=== PATIENT | female | born 1990 | race Two or more races ===

== ENCOUNTER 2017-06-01 11:33 | Emergency (ER) | payer SELFPAY ==
--- NOTE | 2017-06-01 12:06 | ER Document Report ---
ED Psych Disorder / Suicide - General Chief Complaint: Suicidal Ideation Stated Complaint: SUICIDAL IDEATION Time Seen by Provider: 06/01/17 12:03 Notes: Patient says that she has been feeling depressed for a long time. She was seen by a local mental health provider at [facility] and prescribed both Zoloft and Prozac about 3 weeks ago. She says that her depression has worsened since she started taking those medications and is now feeling suicidal. She has had suicidal thoughts in the past. She cut the inner aspect of her left arm Veena, with the intent of causing herself pain, not killing herself. TRAVEL OUTSIDE OF THE [place] IN LAST 30 DAYS: No - Related Data Allergies/Adverse Reactions: No Known Allergies Allergy (Verified 06/01/17 11:40) Past Medical History - Social History Smoking Status: Current Every Day Smoker Chew tobacco use (# tins/day): No Frequency of alcohol use: Occasional Drug Abuse: Marijuana Family History: Reviewed & Not Pertinent Patient has suicidal ideation: Yes Neurological Medical History: Reports: Hx Migraine, Other - Neurofibromatosis type I Moyamoya disease Musculoskeltal Medical History: Denies Hx Arthritis Psychiatric Medical History: Reports: Hx Depression Past Surgical History: Reports: Hx Gynecologic Surgery - hymenectomy, Hx Nose Surgery - x2, Hx Orthopedic Surgery - bone biospy, Hx Tubal Ligation - Immunizations Hx Diphtheria, Pertussis, Tetanus Vaccination: Yes Review of Systems - Review of Systems Notes: REVIEW OF SYSTEMS: CONSTITUTIONAL : Denies fever. EENT: Denies eye, ear, nose or mouth or throat pain or other symptoms. CARDIOVASCULAR: Denies chest pain. RESPIRATORY: Denies cough, chest congestion, or shortness of breath. GASTROINTESTINAL: Denies abdominal pain or nausea, vomiting, or diarrhea. GENITOURINARY: Denies difficulty or painful urinating, urinary frequency, blood in urine. MUSCULOSKELETAL: Denies back or neck pain. Denies joint pain or swelling. SKIN: Denies rash or skin lesions. Superficial scratches from self-inflicted wounds four days ago. None require suturing or other care. NEUROLOGICAL: Denies LOC or altered mental status. Denies headache. Denies sensory loss or motor deficits. Psychiatric: See HPI. ALL OTHER SYSTEMS REVIEWED AND NEGATIVE. Physical Exam - Vital signs Vitals: Temp Pulse Resp BP Pulse Ox 98.7 F 98 16 137/92 H 99 06/01/17 11:40 06/01/17 11:40 06/01/17 11:40 06/01/17 11:40 06/01/17 11:40 - Notes Notes: PHYSICAL EXAMINATION: GENERAL: Well-appearing, in no acute distress. Close to tears at times and certainly appears depressed. HEAD: Atraumatic, normocephalic. EYES: Pupils equal round and reactive to light, extraocular movements intact. ENT: oropharynx clear without exudates. Moist mucous membranes. NECK: Normal range of motion, supple. LUNGS: Breath sounds clear and equal bilaterally. HEART: Regular rate and rhythm without murmurs. ABDOMEN: Soft, nontender. No guarding or rebound. BACK: No tenderness throughout entire back. EXTREMITIES: Normal range of motion without pain. NEUROLOGICAL: Normal speech, normal gait. Normal sensory, motor, and reflex exams. Awake, alert, and oriented x3. Cranial nerves normal. PSYCH: Depressed, anxious. SKIN: Warm, dry, no rashes. A few caf au lait spots of neurofibromatosis. Volar aspect of left forearm has multiple superficial cuts, self-inflicted, none requiring sutures and none infected. Course - Re-evaluation Re-evalutation: 06/01/17 13:57 Patient is to be evaluated by mental health. - Vital Signs Vital signs: Temp Pulse Resp BP Pulse Ox 98.7 F 98 16 137/92 H 99 06/01/17 11:40 06/01/17 11:40 06/01/17 11:40 06/01/17 11:40 06/01/17 11:40 - Laboratory Result Diagrams: 06/01/17 12:21 06/01/17 12:21 Laboratory results interpreted by me: 06/01/17 06/01/17 06/01/17 11:50 12:21 12:21 WBC 11.6 H Absolute Neutrophils 8.7 H Urine Blood SMALL H Salicylates < 1.0 L Acetaminophen < 10 L
[2017-06-01 12:33] LABS: APPEARANCE,URINE CLEAR; BILIRUBIN,URINE NEGATIVE (NEGATIVE); GLUCOSE, URINE NEGATIVE (NEGATIVE); KETONES,URINE NEGATIVE (NEGATIVE); LEUKOCYTE ESTERASE,URINE NEGATIVE (NEGATIVE); NITRITE,URINE NEGATIVE (NEGATIVE); PROTEIN,URINE NEGATIVE (NEGATIVE); URINE SPECIFIC GRAVITY 1.005; UROBILINOGEN,URINE NEGATIVE mg/dL (<2.0)
[2017-06-01 12:39] LABS: ABSOLUTE BASOPHILS # (AUTO) 0.1 10^3/uL (0.0-0.2); ABSOLUTE LYMPHOCYTES (AUTO) 1.9 10^3/uL (0.5-4.7); ABSOLUTE MONOCYTES (AUTO) 0.9 10^3/uL (0.1-1.4); ABSOLUTE NEUT (AUTO) 8.7 10^3/uL (1.7-8.2); BASOPHILS % (AUTO) 0.6 % (0-2); EOSINOPHILS % (AUTO) 0.3 % (0-6); HEMATOCRIT 42.5 % (36.0-47.0); HEMOGLOBIN 14.3 g/dL (12.0-15.5); HGB HCT DIFFERENCE 0.4; LYMPHOCYTES % (AUTO) 16.2 % (13-45); MEAN CORPUSCULAR HEMOGLOBIN 29.1 pg (27.0-33.4); MEAN CORPUSCULAR HGB CONC 33.7 g/dL (32.0-36.0); MEAN CORPUSCULAR VOLUME 86 fl (80-97); MONOCYTES % (AUTO) 7.7 % (3-13); RED BLOOD COUNT 4.92 10^6/uL (3.72-5.28); RED CELL DISTRIBUTION WIDTH 12.7 % (11.5-14.0); SEGMENTED NEUTROPHILS % (AUTO) 75.2 % (42-78); WHITE BLOOD COUNT 11.6 10^3/uL (4.0-10.5)
[2017-06-01 12:49] LABS: URINE BARBITURATES SCREEN NEGATIVE; URINE METHADONE SCREEN NEGATIVE; URINE OPIATES LOW NEGATIVE; URINE PHENCYCLIDINE SCREEN NEGATIVE
[2017-06-01 12:58] LABS: ALANINE AMINOTRANSFERASE 18 U/L (9-52); ALBUMIN 4.7 g/dL (3.5-5.0); ALCOHOL < 10 mg/dL (NONE DETECTED); ALKALINE PHOSPHATASE 54 U/L (38-126); ANION GAP 12 (5-19); ASPARTATE AMINO TRANSFERASE 15 U/L (14-36); BILIRUBIN,DIRECT 0.3 mg/dL (0.0-0.4); BILIRUBIN,TOTAL 0.6 mg/dL (0.2-1.3); BLOOD UREA NITROGEN 9 mg/dL (7-20); CALCIUM 10.2 mg/dL (8.4-10.2); CARBON DIOXIDE 26 mmol/L (22-30); CHLORIDE 102 mmol/L (98-107); CREATININE RESULT 0.66 mg/dL (0.52-1.25); GLUCOSE 90 mg/dL (75-110); POTASSIUM 3.9 mmol/L (3.6-5.0); SODIUM 140.4 mmol/L (137-145); TOTAL PROTEIN 8.2 g/dL (6.3-8.2)
--- NOTE | 2017-06-01 13:37 | EKG REPORT ---
SEVERITY:- NORMAL ECG - SINUS RHYTHM : Confirmed by: Evy Gutierrez 01-Jun-2017 13:36:43
[2017-06-01] MEDS ORDERED: ACETAMINOPHEN 325 MG TABLET PO ONE (14:23)
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
[2017-06-01] MEDS ORDERED: VENLAFAXINE HCL 37.5 MG CAP.SR.24H PO ONE (18:36)
[2017-06-01] MEDS: VENLAFAXINE HCL 37.5 MG CAP.SR.24H PO SCH (18:40)
[2017-06-01] MEDS ORDERED: BUSPIRONE HCL 10 MG TABLET PO SCH (22:00)
[2017-06-01] MEDS ORDERED: CLONIDINE HCL 0.1 MG TABLET PO SCH (22:00)
[2017-06-02] MEDS ORDERED: BUSPIRONE HCL 10 MG TABLET PO SCH (08:00)
--- NOTE | 2017-06-02 09:21 | ER Document Report ---
Doctor's Note Notes: 06/02/17 09:20 I have evaluated this patient this am and has no c/o at this time. Feels all of their needs are being met and physical exam is normal. Awaiting dispositon per mental health. 06/02/17 10:37 Pt evaluated by mental health. Recommending adding BuSpar 5 mg in the morning and 10 mg at night and Effexor 37.5 mg daily with follow-up at [facility]. Patient is no longer suicidal and is comfortable with plan. Given strict return precautions and she understands.
[2017-06-02] MEDS: VENLAFAXINE HCL 37.5 MG CAP.SR.24H PO SCH (10:31)
[2017-06-02 11:38] VITALS: BP 115/75
== END 2017-06-02 11:00 | disposition home or self-care (01) ==
LOC: ER 11:33
DX: R45.851 Suicidal ideations (principal); F32.9 Major depressive disorder, single episode, unspecified; F43.10 Post-traumatic stress disorder, unspecified; F17.200 Nicotine dependence, unspecified, uncomplicated; Z98.51 Tubal ligation status
CPT/HCPCS: 93005; 99285; 36415; 80307 ×4; 84703; 85025; 80053; 81001; 93010; J3490 ×2

== ENCOUNTER 2018-01-09 09:50 | Emergency (ER) | payer SELFPAY ==
[2018-01-09] MEDS ORDERED: PSEUDOEPHEDRINE HCL 30 MG TABLET PO ONE (12:19)
[2018-01-09] MEDS ORDERED: IBUPROFEN 800 MG TABLET PO ONE (12:19)
--- NOTE | 2018-01-09 12:21 | ER Document Report ---
HPI - HPI Patient complains to provider of: flu like symptoms Pain Level: 2 Context: Patient presents with flulike symptoms that started last evening. With recent sick contacts at home. Admits to headache, sinus congestion, nonproductive cough. Has not taken anything prior to arrival. Denies any fevers.Last menstrual period was December 21 PMH: NF1 and moyamoya without any previous complications - CONSTITUTIONAL Constitutional: REPORTS: Chills - RESPIRATORY Respiratory: REPORTS: Coughing - REPRODUCTIVE Reproductive: DENIES: : Past Medical History - Social History Smoking Status: Current Every Day Smoker Chew tobacco use (# tins/day): No Frequency of alcohol use: Rare Drug Abuse: None Family History: Reviewed & Not Pertinent Patient has suicidal ideation: No Patient has homicidal ideation: No - Past Medical History Cardiac Medical History: Denies: Hx Coronary Artery Disease, Hx Heart Attack, Hx Hypertension Pulmonary Medical History: Denies: Hx Asthma, Hx Bronchitis, Hx COPD, Hx Pneumonia Neurological Medical History: Reports: Hx Migraine. Denies: Hx Cerebrovascular Accident, Hx Seizures Renal/ Medical History: Denies: Hx Peritoneal Dialysis Musculoskeltal Medical History: Denies Hx Arthritis Psychiatric Medical History: Reports: Hx Depression Past Surgical History: Reports: Hx Gynecologic Surgery - hymenectomy, Hx Nose Surgery - x2, Hx Orthopedic Surgery - bone biospy, Hx Tubal Ligation - Immunizations Hx Diphtheria, Pertussis, Tetanus Vaccination: Yes Vertical Provider Document - CONSTITUTIONAL Agree With Documented VS: Yes Notes: PHYSICAL EXAM GENERAL: Alert, interacts well. HEENT: NCAT, pale conjunctiva, extraocular movements intact, pupils PERRL. external ear normal, no evidence of external auditory canal tenderness, blood/ drainage, cerumen impaction, TM intact without evidence of effusion, bulging, injection, MMM, Uvula midline. Airway patent. No evidence of tonsillar enlargement, peritonsillar abscess, retropharyngeal abscess. LUNGS: Clear to auscultation bilaterally, no wheezes, rales, or rhonchi. No respiratory distress. HEART: Regular rate and rhythm. No murmurs, gallops, or rubs. ABDOMEN: Soft, nondistended, nontender. No guarding, rebound, or rigidity.. Bowel sounds present in all 4 quadrants. EXTREMITIES: Moves all 4 extremities spontaneously. No edema, radial and dorsalis pedis pulses 2/4 bilaterally. No cyanosis. NEUROLOGICAL: Alert and oriented x4. Normal speech. PSYCH: Normal affect, normal mood. SKIN: Warm, dry, normal turgor. No rashes or lesions noted. - INFECTION CONTROL TRAVEL OUTSIDE OF THE [place] IN LAST 30 DAYS: No - RESPIRATORY O2 Sat by Pulse Oximetry: 97 Course - Re-evaluation Re-evalutation: 01/09/18 12:20 Patient presents with cough, diarrhea, and fever at home consistent with a diagnosis of influenza. Patient is overall well in appearance, in no acute distress. Lung sounds clear. Able to tolerate oral intake without difficulty here in the emergency department. After risks and benefits conversation with the patient regarding the use of Tamiflu, they have elected to use supportive care without Tamiflu based on concerns about lack of efficacy as well as the side effect profile. At this time will discharge with return precautions and follow-up recommendations. Verbal discharge instructions given a the bedside and opportunity for questions given. Medication warnings reviewed. Patient is in agreement with this plan and has verbalized understanding of return precautions and the need for primary care follow-up in the next 24-72 hours. - Vital Signs Vital signs: Temp Pulse Resp BP Pulse Ox 98.5 F 87 16 122/74 97 01/09/18 10:05 01/09/18 10:05 01/09/18 10:05 01/09/18 10:05 01/09/18 10:05 Discharge - Discharge Clinical Impression: Flu-like symptoms Condition: Good Disposition: HOME, SELF-CARE Additional Instructions: You have symptoms consistent with influenza. There is no treatment that is effective for this diagnosis other than supportive care at home. This includes drinking plenty of fluids, using Tylenol or ibuprofen as needed for fever and discomfort, and Zofran as needed for nausea and vomiting. Please follow closely with you primary care physician the next 1-2 days regarding this diagnosis. Return to the emergency department immediately if you began to have persistent vomiting prevents you from being able to keep fluids down for more than 12 hours, you pass out, you began having difficulty breathing, you become confused, or you have any other symptoms that are worrisome to you. Prescriptions: Ondansetron [Zofran Odt 4 mg Tablet] 1 - 2 tab PO Q4H PRN #15 tab.rapdis PRN Reason: For Nausea/Vomiting
[2018-01-09 12:40] VITALS: BP 120/75
== END 2018-01-09 12:40 | disposition home or self-care (01) ==
LOC: ER 09:50
DX: R51 Headache (principal); R09.81 Nasal congestion; R05 Cough; F17.200 Nicotine dependence, unspecified, uncomplicated; R19.7 Diarrhea, unspecified; R50.9 Fever, unspecified
CPT/HCPCS: 99283

== ENCOUNTER 2018-04-24 08:08 | Emergency (ER) | payer SELFPAY ==
[2018-04-24 08:15] VITALS: BP 121/80
[2018-04-24] MEDS ORDERED: METOCLOPRAMIDE HCL INJ/PF 10 MG/2 ML SDV IV ONE (09:14)
[2018-04-24] MEDS ORDERED: NORMAL SALINE 1000 ML 1,000 ML IV ONE (09:14)
[2018-04-24 09:25] LABS: ABSOLUTE BASOPHILS # (AUTO) 0.1 10^3/uL (0.0-0.2); ABSOLUTE EOSINOPHILS # (AUTO) 0.1 10^3/uL (0.0-0.6); ABSOLUTE LYMPHOCYTES (AUTO) 2.1 10^3/uL (0.5-4.7); ABSOLUTE MONOCYTES (AUTO) 1.2 10^3/uL (0.1-1.4); ABSOLUTE NEUT (AUTO) 8.7 10^3/uL (1.7-8.2); BASOPHILS % (AUTO) 0.8 % (0-2); EOSINOPHILS % (AUTO) 0.7 % (0-6); HEMATOCRIT 41.8 % (36.0-47.0); HEMOGLOBIN 14.5 g/dL (12.0-15.5); LYMPHOCYTES % (AUTO) 16.9 % (13-45); MEAN CORPUSCULAR HEMOGLOBIN 30.4 pg (27.0-33.4); MEAN CORPUSCULAR HGB CONC 34.7 g/dL (32.0-36.0); MEAN CORPUSCULAR VOLUME 88 fl (80-97); MONOCYTES % (AUTO) 10.1 % (3-13); PLATELET COUNT 302 10^3/uL (150-450); RED BLOOD COUNT 4.77 10^6/uL (3.72-5.28); RED CELL DISTRIBUTION WIDTH 12.8 % (11.5-14.0); SEGMENTED NEUTROPHILS % (AUTO) 71.5 % (42-78); TOTAL CELLS COUNTED % (AUTO) 100 %; WHITE BLOOD COUNT 12.1 10^3/uL (4.0-10.5)
[2018-04-24 09:42] LABS: ALANINE AMINOTRANSFERASE 21 U/L (9-52); ALBUMIN 4.9 g/dL (3.5-5.0); ALKALINE PHOSPHATASE 46 U/L (38-126); ANION GAP 16 (5-19); ASPARTATE AMINO TRANSFERASE 19 U/L (14-36); BILIRUBIN,DIRECT 0.4 mg/dL (0.0-0.4); BILIRUBIN,TOTAL 1.1 mg/dL (0.2-1.3); BLOOD UREA NITROGEN 9 mg/dL (7-20); CALCIUM 10.6 mg/dL (8.4-10.2); CARBON DIOXIDE 25 mmol/L (22-30); CHLORIDE 103 mmol/L (98-107); GLUCOSE 94 mg/dL (75-110); POTASSIUM 3.9 mmol/L (3.6-5.0)
--- NOTE | 2018-04-24 09:49 | ER Document Report ---
ED General - General Chief Complaint: Vomiting Stated Complaint: VOMITING, ABDOMINAL PAIN, HEADACHE Time Seen by Provider: 04/24/18 08:25 Mode of Arrival: Ambulatory Information source: Patient Notes: 27-year-old female presents with complaints of nausea and vomiting of 4 day duration. Patient notes her last menses was approximately 1 month ago. She denies any fevers or chills denies any diarrhea. Patient admits to [facility] TRAVEL OUTSIDE OF THE [place] IN LAST 30 DAYS: No - HPI Onset: Last week Onset/Duration: Persistent, Waxing and waning Quality of pain: Cramping Severity: Mild Pain Level: 1 Associated symptoms: Nausea, Vomiting, Other Exacerbated by: Food Relieved by: Denies Similar symptoms previously: No Recently seen / treated by doctor: No - Related Data Allergies/Adverse Reactions: No Known Allergies Allergy (Verified 04/24/18 08:58) Past Medical History - Social History Smoking Status: Current Every Day Smoker Cigarette use (# per day): Yes Chew tobacco use (# tins/day): No Smoking Education Provided: No Frequency of alcohol use: Heavy Drug Abuse: None Family History: Reviewed & Not Pertinent Patient has suicidal ideation: No Patient has homicidal ideation: No - Past Medical History Cardiac Medical History: Denies: Hx Coronary Artery Disease, Hx Heart Attack, Hx Hypertension Pulmonary Medical History: Denies: Hx Asthma, Hx Bronchitis, Hx COPD, Hx Pneumonia Neurological Medical History: Reports: Hx Migraine. Denies: Hx Cerebrovascular Accident, Hx Seizures Renal/ Medical History: Denies: Hx Peritoneal Dialysis Musculoskeltal Medical History: Denies Hx Arthritis Psychiatric Medical History: Reports: Hx Depression Past Surgical History: Reports: Hx Gynecologic Surgery - hymenectomy, Hx Nose Surgery - x2, Hx Orthopedic Surgery - bone biospy, Hx Tubal Ligation - Immunizations Hx Diphtheria, Pertussis, Tetanus Vaccination: Yes Review of Systems - Review of Systems Notes: REVIEW OF SYSTEMS: CONSTITUTIONAL : Denies fever, chills, or sweats. Denies recent illness. EENT: Denies eye, ear, throat, or mouth pain or symptoms. Denies nasal or sinus congestion or discharge. Denies throat, tongue, or mouth swelling or difficulty swallowing. CARDIOVASCULAR: Denies chest pain. Denies palpitations or racing or irregular heart beat. Denies ankle edema. RESPIRATORY: Denies cough, cold, or chest congestion. Denies shortness of breath, difficulty breathing, or wheezing. GASTROINTESTINAL: Admits to nausea vomiting GENITOURINARY: Denies difficulty urinating, painful urination, burning, frequency, blood in urine, or discharge. FEMALE GENITOURINARY: Denies vaginal bleeding, heavy or abnormal periods, irregular periods. Denies vaginal discharge or odor. MUSCULOSKELETAL: Denies back or neck pain or stiffness. Denies joint pain or swelling. SKIN: Denies rash, lesions or sores. HEMATOLOGIC : Denies easy bruising or bleeding. LYMPHATIC: Denies swollen, enlarged glands. NEUROLOGICAL: Denies confusion or altered mental status. Denies passing out or loss of consciousness. Denies dizziness or lightheadedness. Denies headache. Denies weakness or paralysis or loss of use of either side. Denies problems with gait or speech. Denies sensory loss, numbness, or tingling. Denies seizures. PSYCHIATRIC: Denies anxiety or stress. Denies depression, suicidal ideation, or homicidal ideation. ALL OTHER SYSTEMS REVIEWED AND NEGATIVE. PHYSICAL EXAMINATION: GENERAL: Well-appearing, well-nourished and in no acute distress. HEAD: Atraumatic, normocephalic. EYES: Pupils equal round and reactive to light, extraocular movements intact, conjunctiva are normal. ENT: Nares patent, oropharynx clear without exudates. Moist mucous membranes. Lips are dry NECK: Normal range of motion, supple without lymphadenopathy LUNGS: Breath sounds clear to auscultation bilaterally and equal. No wheezes rales or rhonchi. HEART: Regular rate and rhythm without murmurs ABDOMEN: Soft, generalized tenderness, nondistended abdomen. No guarding, no rebound. No masses appreciated. Female : deferred Musculoskeletal: Normal range of motion, no pitting or edema. No cyanosis. NEUROLOGICAL: Cranial nerves grossly intact. Normal speech, normal gait. Normal sensory, motor exams PSYCH: Normal mood, normal affect. SKIN: Warm, Dry, normal turgor, no rashes or lesions noted. Dictation was performed using [employer] voice recognition software Physical Exam - Vital signs Vitals: Temp Pulse Resp BP Pulse Ox 98.4 F 69 16 121/80 100 04/24/18 08:12 04/24/18 08:12 04/24/18 08:12 04/24/18 08:12 04/24/18 08:12 Course - Re-evaluation Re-evalutation: 04/24/18 09:51 Patient is noted to have mild white count elevation, she will be given IV fluids nausea control otherwise looks well is in no distress her hCG was negative 04/24/18 16:12 Patient notes symptoms have improved significantly I will discharge home with nausea control and close follow-up After performing a Medical Screening Examination, I estimate there is LOW risk for ACUTE APPENDICITIS, BOWEL OBSTRUCTION, ACUTE CHOLECYSTITIS, PERFORATED DIVERTICULITIS, INCARCERATED HERNIA, PANCREATITIS, PELVIC INFLAMMATORY DISEASE, PERFORATED ULCER, ECTOPIC , or TUBO-OVARIAN ABSCESS, thus I consider the discharge disposition reasonable. Also, there is no evidence or peritonitis , sepsis, or toxicity. I have reevaluated this patient multiple times and no significant life threatening changes are noted. The patient and I have discussed the diagnosis and risks, and we agree with discharging home with close follow-up with the understanding that symptoms and presentations can change. We also discussed returning to the Emergency Department immediately if new or worsening symptoms occur. We have discussed the symptoms which are most concerning (e.g., bloody stool, fever, changing or worsening pain, vomiting) that necessitate immediate return. - Vital Signs Vital signs: Temp Pulse Resp BP Pulse Ox 98.4 F 69 16 121/80 100 04/24/18 08:13 04/24/18 08:13 04/24/18 08:13 04/24/18 08:13 04/24/18 08:13 - Laboratory Result Diagrams: 04/24/18 09:09 04/24/18 09:09 Laboratory results interpreted by me: 04/24/18 04/24/18 09:09 09:09 WBC 12.1 H Absolute Neutrophils 8.7 H Calcium 10.6 H Discharge - Discharge Clinical Impression: Nausea & vomiting Qualifiers: Vomiting type: unspecified Vomiting Intractability: non-intractable Qualified Code(s): R11.2 - Nausea with vomiting, unspecified Abdominal pain Qualifiers: Abdominal location: unspecified location Qualified Code(s): R10.9 - Unspecified abdominal pain Condition: Stable Disposition: HOME, SELF-CARE Instructions: Vomiting ([facility]) Additional Instructions: Follow up with your physician tomorrow for further care or return to the ED IMMEDIATELY if symptoms worsen or new concerns occur. If you cannot afford to follow up with your primary care physician a list of low cost clinics have been provided at the end of your discharge papers as well. Prescriptions: Metoclopramide HCl [Reglan 10 mg Tablet] 1 - 2 tab PO Q6 #25 tablet
== END 2018-04-24 11:29 | disposition home or self-care (01) ==
LOC: ER 08:08
DX: R10.9 Unspecified abdominal pain (principal); R11.2 Nausea with vomiting, unspecified; R10.817 Generalized abdominal tenderness; D72.829 Elevated white blood cell count, unspecified; F17.210 Nicotine dependence, cigarettes, uncomplicated
CPT/HCPCS: 99284; 96361; 96374; 36415; 83690; 84703; 85025; 80053; J2765; J7030

== ENCOUNTER 2018-06-03 11:36 | Emergency (ER) | payer SELFPAY ==
[2018-06-03 11:51] VITALS: BP 103/51
[2018-06-03] MEDS ORDERED: LIDOCAINE 2% VISCOUS SOLN 20 ML UDCUP PO ONE (12:14)
[2018-06-03] MEDS ORDERED: PENICILLIN V POTASSIUM 500 MG TABLET PO ONE (12:14)
--- NOTE | 2018-06-03 12:18 | ER Document Report ---
ED Oral Problem - General Chief Complaint: Mouth Problem Stated Complaint: JAW AND TOOTH PAIN Time Seen by Provider: 06/03/18 12:04 Mode of Arrival: Ambulatory Information source: Patient Notes: 27-year-old female presented ED for complaint of dental pain to tooth #30. She states it is been going on for several days. She has a cavity in this tooth. She has all 4 teeth already surgically removed. There is no swelling to the gums or the face. She has been instructed to follow-up with the dentist as soon as possible. Patient is alert and oriented respirations regular and unlabored speaking in full sentences walk with a even steady gait. TRAVEL OUTSIDE OF THE U[place] IN LAST 30 DAYS: No - HPI Patient complains to provider of: Toothache. No: Swelling of face, Swelling of jaw Onset: Other - Several days worse for the last 2 days Onset: Gradual Quality of pain: Sharp, Throbbing Severity: Severe Pain Level: 5 Associated symptoms: Toothache Worsened by: Cold Relieved by: Nothing Similar symptoms previously: Yes Recently seen / treated by doctor/dentist: No - Related Data Allergies/Adverse Reactions: No Known Allergies Allergy (Verified 06/03/18 11:36) Past Medical History - General Information source: Patient - Social History Smoking Status: Current Every Day Smoker Cigarette use (# per day): Yes - 6-10 cigarettes a day Chew tobacco use (# tins/day): No Smoking Education Provided: Yes - 4 minutes Frequency of alcohol use: Social Drug Abuse: None Lives with: Family Family History: Reviewed & Not Pertinent Patient has suicidal ideation: No Patient has homicidal ideation: No - Past Medical History Cardiac Medical History: Reports: None Pulmonary Medical History: Reports: None EENT Medical History: Reports: None Neurological Medical History: Reports: Hx Migraine Endocrine Medical History: Reports: None Renal/ Medical History: Reports: None Malignancy Medical History: Reports: None GI Medical History: Reports: None Musculoskeltal Medical History: Reports Hx Musculoskeletal Trauma Skin Medical History: Reports None Psychiatric Medical History: Reports: Hx Depression Traumatic Medical History: Reports: Hx Fractures - Toe Past Surgical History: Reports: Hx Gynecologic Surgery - hymenectomy, Hx Nose Surgery - x2 sinus surgery due to infection and nasal reconstruction, Hx Oral Surgery - wisdom teeth removed, Hx Orthopedic Surgery - bone biospy, Hx Tubal Ligation - Immunizations Hx Diphtheria, Pertussis, Tetanus Vaccination: Yes Review of Systems - Review of Systems Constitutional: No symptoms reported EENT: Mouth pain, Dental problem Cardiovascular: No symptoms reported Respiratory: No symptoms reported Gastrointestinal: No symptoms reported Genitourinary: No symptoms reported Female Genitourinary: No symptoms reported Musculoskeletal: No symptoms reported Skin: No symptoms reported Hematologic/Lymphatic: No symptoms reported Neurological/Psychological: No symptoms reported Physical Exam - Vital signs Vitals: Temp Pulse Resp BP Pulse Ox 97.7 F 74 16 103/51 L 99 06/03/18 11:49 06/03/18 11:49 06/03/18 11:49 06/03/18 11:49 06/03/18 11:49 - HEENT Head: Normocephalic, Atraumatic Eyes: Normal Pupils: PERRL Ears: Normal External canal: Normal Tympanic membrane: Normal Sinus: Normal Nasal: Normal Mouth/Lips: Caries Teeth diagram: 1 - Dental cavity with pain to the tooth and gum Course - Re-evaluation Re-evalutation: 06/03/18 21:15 She was treated with Penicillin VK and viscous lidocaine for her dental pain. Patient was given instructions on the need to follow-up with the dentist as soon as possible. Patient was given instructions concerning the fact that lidocaine will numb the gum and tongue and to be aware when chewing so that she does not chew her tongue and cheek. After performing a Medical Screening Examination, I estimate there is LOW risk for a DEEP SPACE INFECTION (e.g., KERRY'S ANGINA OR RETROPHARYNGEAL ABSCESS), MENINGITIS, INTRACRANIAL HEMORRHAGE , or AIRWAY COMPROMISE, thus I consider the discharge disposition reasonable. Also, there is no evidence or peritonitis, sepsis, or toxicity. I have reevaluated this patient multiple times and no significant life threatening changes are noted. The patient and I have discussed the diagnosis and risks, and we agree with discharging home with close follow-up with the understanding that symptoms and presentations can change. We also discussed returning to the Emergency Department immediately if new or worsening symptoms occur. We have discussed the symptoms which are most concerning (e.g., changing or worsening pain, trouble swallowing or breathing, neck stiffness or fever) that necessitate immediate return. - Vital Signs Vital signs: Temp Pulse Resp BP Pulse Ox 97.7 F 74 16 103/51 L 99 06/03/18 11:49 06/03/18 11:49 06/03/18 11:49 06/03/18 11:49 06/03/18 11:49 Discharge - Discharge Clinical Impression: Pain due to dental caries Condition: Stable Disposition: HOME, SELF-CARE Instructions: Family Physicians / Practices, Use of Xjrk-Ktt-Fegkgao Ibuprofen ([facility]) Additional Instructions: TOOTHACHE: Your pain is due to dental decay. The tooth must be repaired in order for you to feel better. You will, therefore, be referred to a dentist. We do not have dentists on the staff at [facility]. Severe swelling or drainage around a tooth usually means a dental abscess. This also requires evaluation and treatment by the dentist, but antibiotics may be prescribed while awaiting dental treatment. You should be rechecked immediately if you develop major swelling of the face, increasing pain, a lump in the jaw or gums, headache, difficulty swallowing, or fever. PENICILLIN V K: You have been given a prescription for Penicillin VK. Your physician has determined that this is the best antibiotic for your condition. Pen VK can be taken with meals, however more of the antibiotic gets into the bloodstream if it's taken on an empty stomach. Penicillin usually has no side effects. However, allergy to penicillins is common. If you have had an allergic reaction to any drug of the penicillin family, you should never take any other penicillin. Notify your doctor at once if you develop hives, itching, swelling, faintness, or shortness of breath. Salt and soda solution 1 quart of water 1 tablespoon of salt 1 teaspoon of baking soda Mixed 3 ingredients together and boil for 1 minute Placed in a covered quart jar Use 1/2 ounce of cold solution to gargle 3 times a day You have been given a syringe of viscous lidocaine. You can use this by applying a small amount to your finger and the rub it onto the gums and tooth that is hurting. You can do this every 1-2 hours for your pain. Be aware that this will also numb your gums and tongue and try not to chew your tongue or gum. FOLLOW-UP CARE: You have been referred for follow-up care to the dentists listed below. Call the dentists office for an appointment as you were instructed or within the next two days. If you experience worsening or a significant change in your symptoms, notify the physician immediately or return to the Emergency Department at any time for re-evaluation. [facility] [address] [place], [place] [facility] [address] [place] [address] [facility] [address] [facility] [address] [place] [facility] [address] [email or web address] [address] [place] [address] Saturday- 8:00am to 5:00 pm Will see patients from other [facility]. Charges based on income and family size and accepts Medicare, Medicaid, and Insurances Will pull molars [facility] [id number] Hours of Operation 8:00 am - 4:30 pm weekdays The following dental offices accept Medicaid: [facility] [address] [address]se[address] Dr. Ortiz Dr. Hummel Dr. Campos Fuentes Tarango Lutsavage, and [facility] Dr. George ([place]) Dr. Jones ([place]) [facility] Drs. Thomas and Cameron ([place]) Dr. Ludwig ([place]) [facility] Dr. Turner ([place]) Drs. Ward and ([place]) Medicaid Care Line Prescriptions: Penicillin V Potassium [Penicillin Vk 500 mg Tablet] 500 mg PO BID #20 tablet
== END 2018-06-03 12:30 | disposition home or self-care (01) ==
LOC: ER 11:36
DX: K02.9 Dental caries, unspecified (principal); R68.84 Jaw pain; F17.210 Nicotine dependence, cigarettes, uncomplicated; Z98.51 Tubal ligation status
CPT/HCPCS: 99406; 99282; J3490

== ENCOUNTER 2018-08-26 18:32 | Emergency (ER) | payer OTHER ==
[2018-08-26] MEDS ORDERED: ALBUTEROL SULFATE 0.083% NEB 2.5 MG/3 ML AMPUL NEB ONE (20:19)
[2018-08-26] MEDS ORDERED: PREDNISONE 20 MG TABLET PO ONE (20:19)
--- NOTE | 2018-08-26 20:20 | ER Document Report ---
ED Medical Screen (RME) - General Chief Complaint: Productive Cough Stated Complaint: COUGH Time Seen by Provider: 08/26/18 20:19 Notes: 28-year-old female to the emergency department with cough, shortness of breath, wheezing and generally not feeling well. Is a smoker. Denies any other major symptoms at this time I have greeted and performed a rapid initial assessment of this patient. A comprehensive ED assessment and evaluation of the patient, analysis of test results and completion of the medical decision making process will be conducted by additional ED providers. TRAVEL OUTSIDE OF THE [place] IN LAST 30 DAYS: No - Related Data Allergies/Adverse Reactions: No Known Allergies Allergy (Verified 08/26/18 18:33) Past Medical History - Past Medical History Cardiac Medical History: Denies: Hx Coronary Artery Disease, Hx Heart Attack, Hx Hypertension Pulmonary Medical History: Denies: Hx Asthma, Hx Bronchitis, Hx COPD, Hx Pneumonia Neurological Medical History: Reports: Hx Migraine. Denies: Hx Cerebrovascular Accident, Hx Seizures Renal/ Medical History: Denies: Hx Peritoneal Dialysis Musculoskeltal Medical History: Denies Hx Arthritis, Reports Hx Musculoskeletal Trauma Psychiatric Medical History: Reports: Hx Depression Traumatic Medical History: Reports: Hx Fractures - Toe Past Surgical History: Reports: Hx Gynecologic Surgery - hymenectomy, Hx Nose Surgery - x2 sinus surgery due to infection and nasal reconstruction, Hx Oral Surgery - wisdom teeth removed, Hx Orthopedic Surgery - bone biospy, Hx Tubal Ligation - Immunizations Hx Diphtheria, Pertussis, Tetanus Vaccination: Yes Physical Exam - Vital signs Vitals: Temp Pulse Resp BP Pulse Ox 98.3 F 87 16 102/64 99 08/26/18 18:44 08/26/18 18:44 08/26/18 18:44 08/26/18 18:44 08/26/18 18:44 Course - Vital Signs Vital signs: Temp Pulse Resp BP Pulse Ox 98.3 F 87 16 102/64 99 08/26/18 18:44 08/26/18 18:44 08/26/18 18:44 08/26/18 18:44 08/26/18 18:44
--- NOTE | 2018-08-26 21:54 | ER Document Report ---
HPI - HPI Pain Level: 4 Notes: Patient is a 28-year-old female with no significant past medical history who presents to the ED complaining of a harsh and dry semi-productive cough, nasal congestion/discharge, postnasal drip, chest soreness only with a cough over the last 3-4 days. Patient has not been using any [id number]-ipyzumc meds for her symptoms. She is still eating and drinking without any difficulties. She is urinating normally and having normal bowel movements. Patient states that she has had a slight wheeze associated, but denies any other significant cardiopulmonary medical history. Denies any drug allergies. Denies any headache, fever, sore throat, palpitations, syncope, shortness of breath, abdominal pain, nausea/vomiting/diarrhea, urinary retention, dysuria, hematuria , or rash. - ROS Systems Reviewed and Negative: Yes All other systems reviewed and negative - REPRODUCTIVE Reproductive: DENIES: : Past Medical History - Social History Smoking Status: Current Every Day Smoker Family History: Reviewed & Not Pertinent Patient has suicidal ideation: No Patient has homicidal ideation: No - Past Medical History Cardiac Medical History: Denies: Hx Coronary Artery Disease, Hx Heart Attack, Hx Hypertension Pulmonary Medical History: Denies: Hx Asthma, Hx Bronchitis, Hx COPD, Hx Pneumonia Neurological Medical History: Reports: Hx Migraine. Denies: Hx Cerebrovascular Accident, Hx Seizures Renal/ Medical History: Denies: Hx Peritoneal Dialysis Musculoskeletal Medical History: Denies Hx Arthritis, Reports Hx Musculoskeletal Trauma Psychiatric Medical History: Reports: Hx Depression Traumatic Medical History: Reports: Hx Fractures - Toe Past Surgical History: Reports: Hx Gynecologic Surgery - hymenectomy, Hx Nose Surgery - x2 sinus surgery due to infection and nasal reconstruction, Hx Oral Surgery - wisdom teeth removed, Hx Orthopedic Surgery - bone biospy, Hx Tubal Ligation - Immunizations Hx Diphtheria, Pertussis, Tetanus Vaccination: Yes Vertical Provider Document - CONSTITUTIONAL Agree With Documented VS: Yes Notes: PHYSICAL EXAMINATION: GENERAL: Well-appearing, well-nourished and in no acute distress. A&Ox4. Answers questions appropriately. Moves comfortably w/o notable distress HEAD: Atraumatic, normocephalic. EYES: Pupils equal round and reactive to light, extraocular movements intact, sclera anicteric, conjunctiva are normal. ENT: EAC clear b/l. TM's intact b/l without erythema, fluid, or perforation. Nares patent and with clear discharge. oropharynx no erythema without exudates. No tonsilar hypertrophy without erythema or exudate. No palatine shift. Uvula midline. No tongue protrusion. No drooling, hoarseness, or airway compromise. Moist mucous membranes. No sinus tenderness. NECK: Normal range of motion, supple without lymphadenopathy. No rigidity/ meningismus. LUNGS: Scant wheeze Lt lung. no crackles/rhonchi. No retractions HEART: Regular rate and rhythm without murmurs, rubs, gallops. ABDOMEN: Soft, nontender, nondistended abdomen. No guarding, no rebound. No masses appreciated. Normal bowel sounds present. No CVA tenderness bilaterally. No hepatosplenomegaly. NEUROLOGICAL: Normal speech, normal gait. Normal sensory, motor exams PSYCH: Normal mood, normal affect. SKIN: Warm, Dry, normal turgor, no rashes or lesions noted. - INFECTION CONTROL TRAVEL OUTSIDE OF THE [place] IN LAST 30 DAYS: No Course - Re-evaluation Re-evalutation: 08/26/18 00:25 Patient is an afebrile, well-hydrated, 28-year-old female who presents to the ED with acute URI/bronchitis, suspect viral. Vitals are acceptable. PE is otherwise unremarkable. CXR unremarkable. No other labs or imaging warranted at this time based on H&P. Patient has no significant cardiopulmonary or immunocompromised medical conditions. Patient's lungs are clear to auscultation bilaterally without tachycardia, hypoxia, or tachypnea s/p breathing treatment. Patient is tolerating p.o. without any difficulties. Low suspicion for any meningitis, sepsis, peritonsillar/pharyngeal abscess, respiratory compromise, severe dehydration, or other emergent systemic condition at this time. Patient is aware this condition can change from initial presentation and she needs to monitor symptoms closely. Rx for an inhaler, tessalon, and prednisone. Conservative measures otherwise for symptoms. Recheck with your PCM in 3-5 days. Return to the ED with any worsening/concerning symptoms otherwise as reviewed in discharge. Patient is in agreement. - Vital Signs Vital signs: Temp Pulse Resp BP Pulse Ox 98.3 F 87 16 102/64 99 08/26/18 18:44 08/26/18 18:44 08/26/18 18:44 08/26/18 18:44 08/26/18 18:44 Discharge - Discharge Clinical Impression: Acute URI Acute bronchitis Qualifiers: Bronchitis organism: unspecified organism Qualified Code(s): J20.9 - Acute bronchitis, unspecified Condition: Stable Disposition: HOME, SELF-CARE Instructions: Bronchitis ([facility]), Upper Respiratory Illness ([facility]) Additional Instructions: Maintain adequate fluid intake Take meds as directed tylenol/ibuprofen as needed over the counter cold medication as needed for symptoms Humidified air may help Wash your hands regularly Wear a mask when coughing F/u: with your PCM in 3-5 days for a recheck Return to the ED with any fever, worsening pain, chest pain, palpitations, syncope, worsening SCHWARTZ, neck pain/stiffness, shortness of breath, wheezing, drooling, trouble swallowing/breathing, abdominal pain, n/v/d, rash, or worsening/concerning symptoms otherwise. Prescriptions: Benzonatate [Tessalon Perle 100 mg Capsule] 100 mg PO Q8HP PRN #15 cap PRN Reason: Albuterol Sulfate [Proair HFA Inhalation Aerosol 8.5 gm MDI] 2 puff IH Q4H PRN # 1 mdi PRN Reason: Prednisone [Deltasone 20 mg Tablet] 3 tab PO DAILY 4 Days tablet Forms: Smoking Cessation Education Referrals: [facility] [Provider Group] - Follow up as needed [facility] [Provider Group] - Follow up as needed
--- NOTE | 2018-08-26 23:55 | RADIOLOGY REPORT (SQ) ---
EXAM DESCRIPTION: XR CHEST 2 VIEWS COMPLETED DATE/TME: 08/26/2018 00:00 CLINICAL HISTORY: 28 years Female, shortness of breath COMPARISON: None. FINDINGS: Adequate lung volume, clear parenchyma, normal cardiac silhouette, and intact bony thorax. IMPRESSION: No acute cardiopulmonary findings.
[2018-08-27 00:43] VITALS: BP 110/66
--- NOTE | 2018-08-27 07:54 | EKG REPORT ---
SEVERITY:- NORMAL ECG - SINUS RHYTHM : Confirmed by: Macey Sweet MD 27-Aug-2018 07:54:12
== END 2018-08-27 00:44 | disposition home or self-care (01) ==
LOC: ER 18:32
DX: J20.9 Acute bronchitis, unspecified (principal); J06.9 Acute upper respiratory infection, unspecified; R05 Cough; R09.81 Nasal congestion; R09.82 Postnasal drip; R09.89 Other specified symptoms and signs involving the circulatory and respiratory systems; R06.2 Wheezing; F17.200 Nicotine dependence, unspecified, uncomplicated
CPT/HCPCS: 93005; 94640; 99284; 71046; 93010; J7512

== ENCOUNTER 2018-10-08 09:54 | Emergency (ER) | payer OTHER ==
[2018-10-08] MEDS ORDERED: KETOROLAC TROMETHAMINE INJ/PF 30 MG/1 ML SDV IV ONE (10:15)
[2018-10-08] MEDS ORDERED: NORMAL SALINE 1000 ML 1,000 ML IV ONE (10:15)
[2018-10-08] MEDS ORDERED: ONDANSETRON HCL INJ/PF 4 MG/2 ML SDV IV ONE (10:15)
[2018-10-08] MEDS ORDERED: DICYCLOMINE HCL 20 MG TABLET PO ONE (10:17)
--- NOTE | 2018-10-08 10:18 | ER Document Report ---
ED Medical Screen (RME) - General Chief Complaint: Abdominal Pain Stated Complaint: ABDOMINAL PAIN Time Seen by Provider: 10/08/18 10:15 Notes: 28 years old female presents today with diffuse abdominal pain and cramps since this morning. Has been having loose stools for the last 2 days. Slight nausea no vomiting. Denies any dysuria frequency urgency. Denies any fever chills or additional symptoms. On examination mild to moderate diffuse abdominal tenderness noted TRAVEL OUTSIDE OF THE [place] IN LAST 30 DAYS: No - Related Data Allergies/Adverse Reactions: No Known Allergies Allergy (Verified 10/08/18 09:56) Past Medical History - Social History Frequency of alcohol use: Rare Drug Abuse: None - Past Medical History Cardiac Medical History: Denies: Hx Coronary Artery Disease, Hx Heart Attack, Hx Hypertension Pulmonary Medical History: Denies: Hx Asthma, Hx Bronchitis, Hx COPD, Hx Pneumonia Neurological Medical History: Reports: Hx Migraine. Denies: Hx Cerebrovascular Accident, Hx Seizures Renal/ Medical History: Denies: Hx Peritoneal Dialysis Musculoskeltal Medical History: Denies Hx Arthritis, Reports Hx Musculoskeletal Trauma Psychiatric Medical History: Reports: Hx Depression Traumatic Medical History: Reports: Hx Fractures - Toe Past Surgical History: Reports: Hx Gynecologic Surgery - hymenectomy, Hx Nose Surgery - x2 sinus surgery due to infection and nasal reconstruction, Hx Oral Surgery - wisdom teeth removed, Hx Orthopedic Surgery - bone biospy, Hx Tubal Ligation - Immunizations Hx Diphtheria, Pertussis, Tetanus Vaccination: Yes Physical Exam - Vital signs Vitals: Temp Pulse Resp BP Pulse Ox 98.0 F 72 20 113/72 98 10/08/18 10:00 10/08/18 10:00 10/08/18 10:00 10/08/18 10:00 10/08/18 10:00 Course - Vital Signs Vital signs: Temp Pulse Resp BP Pulse Ox 98.0 F 72 20 113/72 98 10/08/18 10:00 10/08/18 10:00 10/08/18 10:00 10/08/18 10:00 10/08/18 10:00
[2018-10-08 10:44] LABS: ABSOLUTE BASOPHILS # (AUTO) 0.1 10^3/uL (0.0-0.2); ABSOLUTE EOSINOPHILS # (AUTO) 0.1 10^3/uL (0.0-0.6); ABSOLUTE LYMPHOCYTES (AUTO) 2.1 10^3/uL (0.5-4.7); ABSOLUTE MONOCYTES (AUTO) 0.7 10^3/uL (0.1-1.4); ABSOLUTE NEUT (AUTO) 5.5 10^3/uL (1.7-8.2); BASOPHILS % (AUTO) 0.6 % (0-2); EOSINOPHILS % (AUTO) 1.3 % (0-6); HEMATOCRIT 38.4 % (36.0-47.0); HEMOGLOBIN 13.7 g/dL (12.0-15.5); LYMPHOCYTES % (AUTO) 24.5 % (13-45); MEAN CORPUSCULAR HEMOGLOBIN 31.4 pg (27.0-33.4); MEAN CORPUSCULAR HGB CONC 35.8 g/dL (32.0-36.0); MEAN CORPUSCULAR VOLUME 88 fl (80-97); MONOCYTES % (AUTO) 8.5 % (3-13); PLATELET COUNT 297 10^3/uL (150-450); RED BLOOD COUNT 4.37 10^6/uL (3.72-5.28); RED CELL DISTRIBUTION WIDTH 13.2 % (11.5-14.0); SEGMENTED NEUTROPHILS % (AUTO) 65.1 % (42-78); TOTAL CELLS COUNTED % (AUTO) 100 %; WHITE BLOOD COUNT 8.4 10^3/uL (4.0-10.5)
[2018-10-08 10:50] LABS: APPEARANCE,URINE SLIGHTLY-CLOUDY; BILIRUBIN,URINE NEGATIVE (NEGATIVE); COLOR,URINE STRAW; GLUCOSE, URINE NEGATIVE (NEGATIVE); KETONES,URINE NEGATIVE (NEGATIVE); LEUKOCYTE ESTERASE,URINE SMALL (NEGATIVE); NITRITE,URINE NEGATIVE (NEGATIVE); PROTEIN,URINE NEGATIVE (NEGATIVE); URINE SPECIFIC GRAVITY 1.008; UROBILINOGEN,URINE NEGATIVE mg/dL (<2.0)
--- NOTE | 2018-10-08 10:57 | ER Document Report ---
ED General - General Mode of Arrival: Ambulatory Information source: Patient TRAVEL OUTSIDE OF THE [place] IN LAST 30 DAYS: No <SOLEDAD RAMIREZ - Last Filed: 10/08/18 11:40> <JACKY GRANGER - Last Filed: 10/08/18 12:46> - General Chief Complaint: Abdominal Pain Stated Complaint: ABDOMINAL PAIN Time Seen by Provider: 10/08/18 10:15 Notes: Patient is a 28 year old female presenting to the emergency department complaining of abdominal pain and cramps onset 2 days ago. Patient states her cramps were initially intermittent and exacerbated with food. Today she states the pain has become constant, exacerbated with walking and describes it as feeling like her "organs are going to drop out". She states she has not had a similar pain. Patient also complains of some nausea and diarrhea describing the diarrhea as a mix of loose, watery stool and solid stool. Patient denies any dysuria, urine frequency or urgency, fevers or chills. Patient's LMP was 10/04/2018. Of significance, in the last 7 years patient has presented to the emergency department several times complaining of abdominal pain. (SOLEDAD RAMIREZ) - Related Data Allergies/Adverse Reactions: No Known Allergies Allergy (Verified 10/08/18 11:38) Past Medical History - General Information source: Patient - Social History Smoking Status: Current Every Day Smoker Frequency of alcohol use: Rare Drug Abuse: None Family History: Reviewed & Not Pertinent Patient has suicidal ideation: No Patient has homicidal ideation: No Neurological Medical History: Reports: Hx Migraine Musculoskeletal Medical History: Reports Hx Musculoskeletal Trauma Psychiatric Medical History: Reports: Hx Depression Traumatic Medical History: Reports: Hx Fractures - Toe Past Surgical History: Reports: Hx Gynecologic Surgery - hymenectomy, Hx Nose Surgery - x2 sinus surgery due to infection and nasal reconstruction, Hx Oral Surgery - wisdom teeth removed, Hx Orthopedic Surgery - bone biospy, Hx Tubal Ligation - Immunizations Hx Diphtheria, Pertussis, Tetanus Vaccination: Yes <SOLEDAD RAMIREZ - Last Filed: 10/08/18 11:40> Review of Systems - Review of Systems Constitutional: No symptoms reported EENT: No symptoms reported Cardiovascular: No symptoms reported Respiratory: No symptoms reported Gastrointestinal: See HPI, Abdominal pain, Diarrhea Genitourinary: No symptoms reported Female Genitourinary: No symptoms reported Musculoskeletal: No symptoms reported Skin: No symptoms reported Hematologic/Lymphatic: No symptoms reported Neurological/Psychological: No symptoms reported -: Yes All other systems reviewed and negative <SOLEDAD RAMIREZ - Last Filed: 10/08/18 11:40> Physical Exam <SOLEDAD RAMIREZ - Last Filed: 10/08/18 11:40> <ELKINJACKY Rojas - Last Filed: 10/08/18 12:46> - Vital signs Vitals: Temp Pulse Resp BP Pulse Ox 98.0 F 72 20 113/72 98 10/08/18 10:00 10/08/18 10:00 10/08/18 10:00 10/08/18 10:00 10/08/18 10:00 - Notes Notes: GENERAL: Alert, interacts well. No acute distress. HEAD: Normocephalic, atraumatic. EYES: Pupils equal, round, and reactive to light. Extraocular movements intact. ENT: Oral mucosa moist, tongue midline. NECK: Full range of motion. Supple. Trachea midline. LUNGS: Clear to auscultation bilaterally, no wheezes, rales, or rhonchi. No respiratory distress. HEART: Regular rate and rhythm. No murmurs, gallops, or rubs. ABDOMEN: Soft, mild tenderness to the upper abdomen, tenderness to the lower abdomen . Non-distended. Bowel sounds hyperactive. EXTREMITIES: Moves all 4 extremities spontaneously. NEUROLOGICAL: Alert and oriented x3. Normal speech. PSYCH: Normal affect, normal mood. SKIN: Warm, dry, normal turgor. No rashes or lesions noted. (SOLEDAD RAMIREZ) Course - Laboratory Result Diagrams: 10/08/18 10:28 10/08/18 10:28 <SOLEDAD RAMIREZ - Last Filed: 10/08/18 11:40> - Laboratory Result Diagrams: 10/08/18 10:28 10/08/18 10:28 - Diagnostic Test Radiology reviewed: Image reviewed, Reports reviewed - Nonspecific bowel gas pattern. Nothing acute. <JACKY GRANGER - Last Filed: 10/08/18 12:46> - Re-evaluation Re-evalutation: 10/08/18 12:34 The patient's CBC is unremarkable and does not suggest any bacterial type infection. Chem-12 is normal with a BUN of 5 indicating patient is well hydrated. The catch urinalysis has a specific gravity of 1.008, 5 WBCs, 1 RBC, trace bacteria, and small leukocyte esterase. Acute abdominal series shows nonspecific bowel gas pattern. The patient tells me she has never had discomfort like this in the past, however she has been seen here many times over the last several years with very similar histories and physicals. 10/08/18 12:43 Patient reports she is feeling much better at this time. I discussed the likely diagnoses. We will treat her with Bentyl for the cramping. Advised her to stay on clear liquids and not eat food, and she did recognize that eating food tended to make the cramping and pain much worse. (JACKY GRANGER) - Vital Signs Vital signs: Temp Pulse Resp BP Pulse Ox 98.0 F 72 20 113/72 98 10/08/18 10:00 10/08/18 10:00 10/08/18 10:00 10/08/18 10:00 10/08/18 10:00 - Laboratory Laboratory results interpreted by me: 10/08/18 10/08/18 10:28 10:28 BUN 5 L AST 13 L Urine Blood MODERATE H Ur Leukocyte Esterase SMALL H Discharge <SOLEDAD RAMIREZ - Last Filed: 10/08/18 11:40> <JACKY GRANGER - Last Filed: 10/08/18 12:46> - Discharge Clinical Impression: Abdominal cramping Condition: Stable Disposition: HOME, SELF-CARE Additional Instructions: Gastroenteritis You most likely have gastroenteritis. This is an irritation of the stomach and intestinal tract. It's usually caused by a virus, but can also be caused by bacteria, toxins that cause food poisoning, or excessive alcohol intake. Symptoms may include fever, painful abdominal cramps, nausea, vomiting , and diarrhea. Start with small amounts (two to six ounces) of clear liquids (soft drinks , herb teas, broth, etc). Try to take fluids frequently even if you are vomiting, to prevent dehydration. When liquids are being consumed successfully , advance to small amounts of bland food (mashed potato, toast) for 6 - 12 hours. Gastroenteritis rarely requires medication. It goes away by itself. Use good handwashing so you don't spread germs. Wash underwear in very hot water. If symptoms are severe, talk to the doctor. Call your physician if blood appears in your vomitus or stool, if vomiting lasts longer than 24 hours, if the abdominal pain worsens or becomes localized to one area, or if you develop high fever. Take the Bentyl as prescribed for the intestinal cramping. Drink cool clear liquids today. Rest today. Follow-up with a local primary care provider if not improving. RETURN TO THE EMERGENCY ROOM IF ANY NEW OR WORSENING SYMPTOMS. Prescriptions: Dicyclomine HCl [Bentyl 20 mg Tablet] 20 mg PO Q6 PRN #15 tablet PRN Reason: Abdominal Cramping Scribe Attestation: 10/08/18 11:47 I personally performed the services described in the documentation, reviewed and edited the documentation which was dictated to the scribe in my presence, and it accurately records my words and actions. (JACKY GRANGER) Scribe Documentation - Scribe Written by Trinity:: Trinity Valles, 10/08/2018 10:57 acting as scribe for :: Elkin <SOLEDAD RAMIREZ - Last Filed: 10/08/18 11:40>
[2018-10-08 11:04] LABS: BLOOD UREA NITROGEN 5 mg/dL (7-20); GLUCOSE 83 mg/dL (75-110); POTASSIUM 4.2 mmol/L (3.6-5.0)
[2018-10-08 11:05] LABS: ALANINE AMINOTRANSFERASE 15 U/L (9-52); ALBUMIN 4.6 g/dL (3.5-5.0); ALKALINE PHOSPHATASE 40 U/L (38-126); ANION GAP 11 (5-19); ASPARTATE AMINO TRANSFERASE 13 U/L (14-36); BILIRUBIN,DIRECT 0.1 mg/dL (0.0-0.4); BILIRUBIN,TOTAL 0.5 mg/dL (0.2-1.3); CARBON DIOXIDE 26 mmol/L (22-30); CHLORIDE 105 mmol/L (98-107); LIPASE 30.9 U/L (23-300); SODIUM 142.1 mmol/L (137-145); TOTAL PROTEIN 7.4 g/dL (6.3-8.2); URINE AMPHETAMINES SCREEN NEGATIVE; URINE BARBITURATES SCREEN NEGATIVE; URINE BENZODIAZEPINES SCREEN NEGATIVE; URINE COCAINE SCREEN NEGATIVE; URINE MARIJUANA (THC) SCREEN UNCONFIRMED POSITIVE; URINE METHADONE SCREEN NEGATIVE; URINE PHENCYCLIDINE SCREEN NEGATIVE
--- NOTE | 2018-10-08 12:00 | RADIOLOGY REPORT (SQ) ---
EXAM DESCRIPTION: ACUTE ABDOMEN SERIES COMPLETED DATE/TIME: 10/08/2018 11:49 am REASON FOR STUDY: Abdominal pain COMPARISON: Chest x-ray dated 08/26/2018 NUMBER OF VIEWS: Three views. TECHNIQUE: Frontal chest, supine abdomen and upright/decubitus abdomen radiographic images acquired. LIMITATIONS: None. FINDINGS: CHEST: Lungs clear of infiltrates. FREE AIR: None. No abnormal gas collections. BOWEL GAS PATTERN: Nonobstructive pattern. No dilated loops or air fluid levels. CALCIFICATIONS: No suspicious calcifications. HARDWARE: There are tubal ligation clips overlying the right aspect of the pelvis. SOFT TISSUES: No gross mass or suggestion of organomegaly. BONES: No acute fracture. No worrisome bone lesions. OTHER: No other significant finding. IMPRESSION: NO RADIOGRAPHIC EVIDENCE FOR ACUTE ABDOMINAL DISEASE. TECHNICAL DOCUMENTATION: JOB ID: [id number] [email or web address]- All Rights Reserved Reading location - IP/workstation name: [email or web address]
[2018-10-08 13:18] VITALS: BP 108/58
== END 2018-10-08 13:00 | disposition home or self-care (01) ==
LOC: ER 09:54
DX: R10.9 Unspecified abdominal pain (principal); R11.0 Nausea; R19.7 Diarrhea, unspecified; F17.200 Nicotine dependence, unspecified, uncomplicated
CPT/HCPCS: 99284; 96361; 96374; 96375; 36415; 83690; 85025; 81025; 80053; 81001; 80307; 74022; J3490; J1885; J2405; J7030

== ENCOUNTER → 2018-10-21 | Outpatient (CLI) | payer OTHER ==
--- NOTE | 2018-10-21 10:24 | RADIOLOGY REPORT (SQ) ---
EXAM DESCRIPTION: U/S THYROID/SFT TISS HD NECK COMPLETED DATE/TIME: 10/21/2018 10:08 am REASON FOR STUDY: GENERALIZED ENLARGED LYMPH NODES R59.1 GENERALIZED ENLARGED LYMPH NODES COMPARISON: None. TECHNIQUE: Dynamic and static perez-scale images acquired of the thyroid gland. Selected additional c olor/power Doppler images recorded. All images stored to PACS. LIMITATIONS: None. FINDINGS: RIGHT LOBE: Normal size, 4.5 x 1.6 x 2 cm. Homogeneous echotexture. No cystic or solid m asses. LEFT LOBE: Normal size, 4.2 x 1.6 x 2 cm. Homogeneous echotexture. No cystic or solid masses. ISTHMUS: Normal size. Homogeneous echotexture. No cystic or solid masses. OTHER: Several hypoechoic lymph nodes are present in the left supraclavicular region, 1.3 x 1 cm, 1 x 0.4 cm, 0.9 x 0.4 cm in size IMPRESSION: NORMAL THYROID ULTRASOUND. Mildly enlarged left supraclavicular lymph nodes are present. TECHNICAL DOCUMENTATION: JOB ID: [id number]- All Rights Reserved Reading location - IP/workstation name: [email or web address]
== END ==
LOC: RAD 09:24
PROVIDERS: ATTEND Internal Medicine
DX: R59.1 Generalized enlarged lymph nodes (principal)
CPT/HCPCS: 76536

== ENCOUNTER 2019-03-09 10:46 | Emergency (ER) | payer OTHER ==
--- NOTE | 2019-03-09 11:07 | ER Document Report ---
ED Medical Screen (RME) - General Chief Complaint: Burn Stated Complaint: GREASE BURN TO EYE/ARM Time Seen by Provider: 03/09/19 11:03 Primary Care Provider: RADHA OROZCO MD [Primary Care Provider] - Follow up as needed Mode of Arrival: Wheelchair Information source: Patient Notes: Patient is an otherwise healthy 20-year-old female who presents to the emergency department with complaints of increased burning. Patient reports burn to her right antecubital area as well as her bilateral eyes. Patient reports she was cooking hamburger when the grease splashed up at her. Exam: No visible irving noted on exam to right arm. Eye exam deferred until patient is in a room. I have greeted and performed a rapid initial assessment of this patient. A comprehensive ED assessment and evaluation of the patient, analysis of test results and completion of the medical decision making process will be conducted by additional ED providers. Dictation of this chart was performed using voice recognition software; therefore, there may be some unintended grammatical errors. TRAVEL OUTSIDE OF THE [place] IN LAST 30 DAYS: No - Related Data Allergies/Adverse Reactions: No Known Allergies Allergy (Verified 03/09/19 10:51) Past Medical History - Social History Chew tobacco use (# tins/day): - 1/2 ppd Frequency of alcohol use: Occasional Drug Abuse: None - Past Medical History Cardiac Medical History: Denies: Hx Coronary Artery Disease, Hx Heart Attack, Hx Hypertension Pulmonary Medical History: Denies: Hx Asthma, Hx Bronchitis, Hx COPD, Hx Pneumonia Neurological Medical History: Reports: Hx Migraine. Denies: Hx Cerebrovascular Accident, Hx Seizures Renal/ Medical History: Denies: Hx Peritoneal Dialysis Musculoskeltal Medical History: Denies Hx Arthritis, Reports Hx Musculoskeletal Trauma Psychiatric Medical History: Reports: Hx Depression Traumatic Medical History: Reports: Hx Fractures - Toe Past Surgical History: Reports: Hx Gynecologic Surgery - hymenectomy, Hx Nose Surgery - x2 sinus surgery due to infection and nasal reconstruction, Hx Oral Surgery - wisdom teeth removed, Hx Orthopedic Surgery - bone biospy, Hx Tubal Ligation - Immunizations Hx Diphtheria, Pertussis, Tetanus Vaccination: Yes Doctor's Discharge - Discharge Referrals: RADHA OROZCO MD [Primary Care Provider] - Follow up as needed
[2019-03-09] MEDS ORDERED: TETRACAINE HCL 0.5% OPH SOLN 4 ML OU ONE (11:30)
--- NOTE | 2019-03-09 11:33 | ER Document Report ---
ED General - General Chief Complaint: Burn Stated Complaint: GREASE BURN TO EYE/ARM Time Seen by Provider: 03/09/19 11:03 Primary Care Provider: RADHA ROOZCO MD [Primary Care Provider] - Follow up as needed Mode of Arrival: Wheelchair Notes: Patient is a 28-year-old female who presents emergency with a chief complaint of bilateral eye pain. She states that about around 1030 this morning she was meal prepping and she was taking chicken out of a [employer] and grease had flung up off the spoon into both her eyes. She has had her eyes closed since the incident. She states that last time she saw the ios software engineer, she was borderline needing to wear glasses, but was not prescribed them. TRAVEL OUTSIDE OF THE [place] IN LAST 30 DAYS: No - Related Data Allergies/Adverse Reactions: No Known Allergies Allergy (Verified 03/09/19 10:51) Past Medical History - General Information source: Patient - Social History Smoking Status: Current Every Day Smoker Chew tobacco use (# tins/day): - 1/2 ppd Frequency of alcohol use: Occasional Drug Abuse: None Family History: Reviewed & Not Pertinent Patient has suicidal ideation: No Patient has homicidal ideation: No - Past Medical History Cardiac Medical History: Denies: Hx Coronary Artery Disease, Hx Heart Attack, Hx Hypertension Pulmonary Medical History: Denies: Hx Asthma, Hx Bronchitis, Hx COPD, Hx Pneumonia Neurological Medical History: Reports: Hx Migraine. Denies: Hx Cerebrovascular Accident, Hx Seizures Renal/ Medical History: Denies: Hx Peritoneal Dialysis Musculoskeletal Medical History: Denies Hx Arthritis, Reports Hx Musculoskeletal Trauma Psychiatric Medical History: Reports: Hx Depression Traumatic Medical History: Reports: Hx Fractures - Toe Past Surgical History: Reports: Hx Gynecologic Surgery - hymenectomy, Hx Nose Surgery - x2 sinus surgery due to infection and nasal reconstruction, Hx Oral Surgery - wisdom teeth removed, Hx Orthopedic Surgery - bone biospy, Hx Tubal Ligation - Immunizations Hx Diphtheria, Pertussis, Tetanus Vaccination: Yes Review of Systems - Review of Systems Notes: REVIEW OF SYSTEMS: CONSTITUTIONAL : Denies recent illness. Denies recent unintentional weight loss. Denies fever, chills, or sweats. EENT: See HPI CARDIOVASCULAR: Denies chest pain. RESPIRATORY: Denies shortness of breath, cough, congestion, difficulty breathing, or wheezing. GASTROINTESTINAL: Denies nausea, vomiting, and diarrhea. Denies abdominal pain. Denies constipation. GENITOURINARY: Denies difficulty urinating, burning, blood in urine, urgency or frequency. MUSCULOSKELETAL: Denies neck and back pain. Denies joint pain or swelling. SKIN: Denies rash, itchiness, or lesions HEMATOLOGIC : Denies easy bruising or bleeding. LYMPHATIC: Denies swollen, painful, enlarged glands. NEUROLOGICAL: Denies no numbness or tingling denies weakness. Denies headache. Denies altered mental status. Denies alteration in speech. PSYCHIATRIC: Denies stress, anxiety, alteration in sleep patterns, or depression. All other systems reviewed and negative. Physical Exam - Vital signs Vitals: Temp Pulse Resp BP Pulse Ox 98.7 F 69 16 112/68 98 03/09/19 10:54 03/09/19 10:54 03/09/19 10:54 03/09/19 10:54 03/09/19 10:54 - Notes Notes: PHYSICAL EXAMINATION: GENERAL: Appears well, healthy, well-nourished, no acute distress. HEAD: Normocephalic, atraumatic. EYES: PERRL, conjunctiva injected at area of irving, all extraocular movements intact, sclera nonicteric, very small irving noted to left lateral eye and right medial and lateral eye. ENT: Moist mucous membranes. NECK: Supple, no noticeable swelling, redness, rash. Normal range of motion. LUNGS: Equal breath sounds bilaterally and clear to auscultation. No wheezes rales or rhonchi. CARDIOVASCULAR: S1-S2, regular rate, regular rhythm. Radial pulses 2+, normal. ABDOMEN: Normoactive bowel sounds. Soft, nontender, no guarding, no rebound tenderness, and no masses palpated. EXTREMITIES: Normal strength and range of motion, no pitting or edema. No cyanosis. NEUROLOGICAL: Moves all extremities upon command. Strength 5/5 in all extremities. PSYCH: Normal mood, normal affect. SKIN: Warm, dry. No rash, lesions, ulcerations noted. Normal skin turgor. Course - Re-evaluation Re-evalutation: 03/09/19 11:57 Conjunctivae was injected, along with very small irving to the lateral aspect of bilateral eyes and medial aspect of right eye. She will be started on Polytrim eyedrops and Toradol eyedrops for pain. Negative Margaret sign. I do not suspect globe rupture. Patient had almost complete resolution of pain with lidocaine drops. She will follow-up with ophthalmology. Verbal discharge instructions were given to the patient. They verbalized understanding. They are stable for discharge. - Vital Signs Vital signs: Temp Pulse Resp BP Pulse Ox 98.7 F 69 16 112/68 98 03/09/19 10:54 03/09/19 10:54 03/09/19 10:54 03/09/19 10:54 03/09/19 10:54 Discharge - Discharge Clinical Impression: Burn Burn of eye Qualifiers: Encounter type: initial encounter Laterality: unspecified laterality Qualified Code(s): T26.40XA - Burn of unspecified eye and adnexa, part unspecified, initial encounter Condition: Stable Disposition: HOME, SELF-CARE Additional Instructions: You were seen today in the emergency department for a grease burn. Your eye showed that you have very small irving to them. You have been started on antibiotics. Place 1 drop to both eyes every 3 hours while awake for the next 7 days. You have also been given pain medication eyedrops, please use as directed. The irving on your skin are very superficial and please follow-up with ophthalmology below in regards to this visit. Prescriptions: Ketorolac Tromethamine [Acular] 1 drop OU TIDP PRN #5 ml PRN Reason: Referrals: MARYCARMEN WOODSON MD [ACTIVE STAFF] - Follow up in 3-5 days
[2019-03-09] MEDS ORDERED: POLYMYXIN B SULFATE/TMP OPH SOLN (10 ML/ER DISP) OU PRN (12:01)
[2019-03-09 12:18] VITALS: BP 110/66
== END 2019-03-09 12:16 | disposition home or self-care (01) ==
LOC: ER 10:46
DX: T26.42XA Burn of left eye and adnexa, part unspecified, initial encounter (principal); T26.41XA Burn of right eye and adnexa, part unspecified, initial encounter; X10.2XXA Contact with fats and cooking oils, initial encounter; Y93.G3 Activity, cooking and baking; F17.200 Nicotine dependence, unspecified, uncomplicated
CPT/HCPCS: 99283; J3490 ×2

== ENCOUNTER 2019-05-20 14:50 | Emergency (ER) | payer OTHER ==
[2019-05-20 15:07] VITALS: BP 116/70
[2019-05-20] MEDS ORDERED: CYCLOBENZAPRINE HCL 10 MG TABLET PO ONE (15:29)
[2019-05-20] MEDS ORDERED: ACETAMINOPHEN 325 MG TABLET PO ONE (15:29)
[2019-05-20] MEDS ORDERED: LIDOCAINE 5% (700 MG) TRANSDERMAL ADH..PATCH TP ONE (15:29)
--- NOTE | 2019-05-20 15:32 | ER Document Report ---
HPI - HPI Patient complains to provider of: Left shoulder pain Time Seen by Provider: 05/20/19 15:19 Onset: Other - 4 days Onset/Duration: Persistent Quality of pain: Achy Pain Level: 5 Context: Patient presents complaining of left shoulder back pain for the past 4 days. Patient denies any injury. Patient denies any fever. Patient complains of increased pain with movement of left upper extremity. Associated Symptoms: Other - Left upper back pain Exacerbated by: Movement Relieved by: Remaining still Similar symptoms previously: No Recently seen / treated by doctor: No - ROS ROS below otherwise negative: Yes Systems Reviewed and Negative: Yes All other systems reviewed and negative - CONSTITUTIONAL Constitutional: DENIES: Fever - NEURO Neurology: DENIES: Headache, Weakness - GASTROINTESTINAL Gastrointestinal: DENIES: Nausea - REPRODUCTIVE Reproductive: DENIES: : - MUSCULOSKELETAL Musculoskeletal: REPORTS: Back Pain - DERM Skin Color: Normal Skin Problems: None Past Medical History - General Information source: Patient - Social History Smoking Status: Current Every Day Smoker Smoking Education Provided: Yes Frequency of alcohol use: Occasional Drug Abuse: None Occupation: None Lives with: Family Family History: Reviewed & Not Pertinent - Medical History Medical History: Other - [place], neurofibromatosis type I Neurological Medical History: Reports: Hx Migraine Renal/ Medical History: Denies: Hx Peritoneal Dialysis Musculoskeletal Medical History: Denies Hx Arthritis, Reports Hx Musculoskeletal Trauma Psychiatric Medical History: Reports: Hx Depression Traumatic Medical History: Reports: Hx Fractures - Toe Past Surgical History: Reports: Hx Gynecologic Surgery - hymenectomy, Hx Nose Surgery - x2 sinus surgery due to infection and nasal reconstruction, Hx Oral Surgery - wisdom teeth removed, Hx Orthopedic Surgery - bone biospy, Hx Tubal Ligation - Immunizations Hx Diphtheria, Pertussis, Tetanus Vaccination: Yes Vertical Provider Document - CONSTITUTIONAL Agree With Documented VS: Yes Exam Limitations: No Limitations General Appearance: WD/WN, No Apparent Distress - INFECTION CONTROL TRAVEL OUTSIDE OF THE [place] IN LAST 30 DAYS: No - HEENT HEENT: Atraumatic, Normocephalic - NECK Neck: Normal Inspection, Supple. negative: Lymphadenopathy-Left, Lymphadenopathy-Right - RESPIRATORY Respiratory: Breath Sounds Normal, No Respiratory Distress - CARDIOVASCULAR Cardiovascular: Regular Rate, Regular Rhythm, No Murmur Pulses: Normal: Radial - BACK Back: Abnormal Inspection - Trapezius muscle tenderness worse with movement of left shoulder. No spinal midline tenderness step-off or deformity - MUSCULOSKELETAL/EXTREMETIES Musculoskeletal/Extremeties: YFN MITCHELL Notes: Patient with full range of motion to left shoulder, normal strength and muscle tone to bilateral upper extremities - NEURO Level of Consciousness: Awake, Alert, Appropriate Motor/Sensory: No Motor Deficit, No Sensory Deficit - DERM Integumentary: Warm, Dry, No Rash Course - Re-evaluation Re-evalutation: 05/20/19 15:31 Patient with tenderness to the left trapezius muscle that is reproducible with movement of left upper extremity. No spinal midline tenderness step-off or deformity. Patient otherwise neurologically intact. Patient encouraged to follow-up with her primary doctor for recheck. - Vital Signs Vital signs: Temp Pulse Resp BP Pulse Ox 98.7 F 88 17 116/70 100 05/20/19 15:05 05/20/19 15:05 05/20/19 15:05 05/20/19 15:05 05/20/19 15:05 Discharge - Discharge Clinical Impression: Trapezius muscle strain Qualifiers: Encounter type: initial encounter Laterality: left Qualified Code(s): S46.812A - Strain of other muscles, fascia and tendons at shoulder and upper arm level, left arm, initial encounter Condition: Stable Disposition: HOME, SELF-CARE Instructions: Muscle Relaxers ([facility]), Muscle Strain ([facility]), Warm Packs ([facility]) Additional Instructions: Return immediately for any new or worsening symptoms Followup with your primary care provider, call tomorrow to make a followup appointment Prescriptions: Cyclobenzaprine HCl [Flexeril 5 mg Tablet] 5 mg PO TID #15 tablet Lidocaine [Lidoderm 5% (700 mg) Transdermal Patch] 1 patch TP DAILY PRN #10 adh..patch PRN Reason: Naproxen [Naprosyn 250 Nmg Tablet] 1 tab PO BID #14 tablet Forms: Smoking Cessation Education Referrals: CHRISTOPHER BOWEN MD [ACTIVE STAFF] - Follow up as needed
== END 2019-05-20 15:54 | disposition home or self-care (01) ==
LOC: ER 14:50
DX: S46.812A Strain of other muscles, fascia and tendons at shoulder and upper arm level, left arm, initial encounter (principal); M25.512 Pain in left shoulder; M79.602 Pain in left arm; M54.6 Pain in thoracic spine; X58.XXXA Exposure to other specified factors, initial encounter; F17.200 Nicotine dependence, unspecified, uncomplicated; Q85.01 Neurofibromatosis, type 1
CPT/HCPCS: 99283

== ENCOUNTER 2019-08-28 08:19 | Emergency (ER) | payer OTHER ==
--- NOTE | 2019-08-28 08:36 | ER Document Report ---
ED General - General Chief Complaint: Nausea/Vomiting Stated Complaint: VOMITING Time Seen by Provider: 08/28/19 08:35 TRAVEL OUTSIDE OF THE [place] IN LAST 30 DAYS: No - HPI Notes: 29 y/o presenting to ED for evaluation of abdominal cramping and vomiting she denies blood in emesis, loose stool, or sick contacts no fever or chills she states all of her symptoms started yesterday and she felt fine previous to that she does not localize pain to any particular area of her belly she denies urinary pain or frequency she is on her period and has a h/o BTL so doubts she denies a h/o kidney stone she still has her GB and appendix in place - Related Data Allergies/Adverse Reactions: No Known Allergies Allergy (Verified 05/20/19 14:51) Past Medical History - Social History Smoking Status: Unknown if Ever Smoked Family History: Reviewed & Not Pertinent - Past Medical History Cardiac Medical History: Denies: Hx Coronary Artery Disease, Hx Heart Attack, Hx Hypertension Pulmonary Medical History: Denies: Hx Asthma, Hx Bronchitis, Hx COPD, Hx Pneumonia Neurological Medical History: Reports: Hx Migraine. Denies: Hx Cerebrovascular Accident, Hx Seizures Renal/ Medical History: Denies: Hx Peritoneal Dialysis Musculoskeletal Medical History: Denies Hx Arthritis, Reports Hx Musculoskeletal Trauma Psychiatric Medical History: Reports: Hx Depression Traumatic Medical History: Reports: Hx Fractures - Toe Past Surgical History: Reports: Hx Gynecologic Surgery - hymenectomy, Hx Nose Surgery - x2 sinus surgery due to infection and nasal reconstruction, Hx Oral Surgery - wisdom teeth removed, Hx Orthopedic Surgery - bone biospy, Hx Tubal Ligation - Immunizations Hx Diphtheria, Pertussis, Tetanus Vaccination: Yes Review of Systems - Review of Systems Constitutional: No symptoms reported EENT: No symptoms reported Cardiovascular: No symptoms reported Respiratory: No symptoms reported Gastrointestinal: Abdominal pain, Nausea, Vomiting. denies: Diarrhea, Blood streaked bowels, Blood in vomit, Black stools Genitourinary: No symptoms reported Female Genitourinary: No symptoms reported Musculoskeletal: No symptoms reported Skin: No symptoms reported Hematologic/Lymphatic: No symptoms reported Neurological/Psychological: No symptoms reported Physical Exam - Vital signs Vitals: Temp Pulse Resp BP Pulse Ox 97.9 F 83 18 118/84 100 08/28/19 08:22 08/28/19 08:22 08/28/19 08:22 08/28/19 08:22 08/28/19 08:22 Interpretation: Normal - General General appearance: Alert, Other - appears to feel unwell but does not appear toxic - HEENT Head: Normocephalic, Atraumatic Eyes: Normal Pupils: PERRL Mucous membranes: Dry - Respiratory Respiratory status: No respiratory distress Chest status: Nontender Breath sounds: Normal Chest palpation: Normal - Cardiovascular Rhythm: Regular Heart sounds: Normal auscultation Murmur: No - Abdominal Inspection: Normal Distension: No distension Bowel sounds: Normal Tenderness: Tender - generally sore but nonfocal and no rebound or guarding Organomegaly: No organomegaly - Back Back: Normal, Nontender - Extremities General upper extremity: Normal inspection, Nontender, Normal color, Normal ROM, Normal temperature General lower extremity: Normal inspection, Nontender, Normal color, Normal ROM, Normal temperature, Normal weight bearing. No: Cristian's sign - Neurological Neuro grossly intact: Yes Cognition: Normal Orientation: AAOx4 [place] Coma Scale Eye Opening: Spontaneous [place] Coma Scale Verbal: Oriented [place] Coma Scale Motor: Obeys Commands [place] Coma Scale Total: 15 Speech: Normal Motor strength normal: LUE, RUE, LLE, RLE Sensory: Normal - Psychological Associated symptoms: Normal affect, Normal mood - Skin Skin Temperature: Warm Skin Moisture: Dry Skin Color: Normal Course - Re-evaluation Re-evalutation: 08/28/19 10:01 will give 1L IVF, zofran and toradol while awaiting lab and urine studies 08/28/19 10:21 feeling better after interventions in ED labs reassuring recommend returning to ED should symptoms worsen but otherwise to follow up with pcp will rx bentyl and emily at time of dc 08/28/19 10:22 symptoms seem consistent w/ gastroenteritis type pathology 08/28/19 10:22 she is currently on her period so hematuria noted on UA likely menstrual UA not convincing for uti - Vital Signs Vital signs: Temp Pulse Resp BP Pulse Ox 97.9 F 83 18 118/84 100 08/28/19 08:22 08/28/19 08:22 08/28/19 08:22 08/28/19 08:22 08/28/19 08:22 - Laboratory Result Diagrams: 08/28/19 09:00 08/28/19 09:00 Laboratory results interpreted by me: 08/28/19 08/28/19 09:00 09:00 Potassium 3.2 L Calcium 10.4 H Urine Protein 30 H Urine Ketones TRACE H Urine Blood LARGE H Urine Urobilinogen 2.0 H Ur Leukocyte Esterase SMALL H Discharge - Discharge Clinical Impression: Vomiting Qualifiers: Vomiting type: unspecified Vomiting Intractability: non-intractable Nausea presence: with nausea Qualified Code(s): R11.2 - Nausea with vomiting, unspecified Condition: Stable Disposition: HOME, SELF-CARE Instructions: Antinausea Medication ([facility]), Vomiting ([facility]) Additional Instructions: advance diet slowly use nausea and pain/spasm medicine as directed return to the ED with worsening follow up with primary doctor as an outpatient Prescriptions: Dicyclomine HCl [Bentyl 10 mg Capsule] 10 mg PO TID #10 capsule Ondansetron [Zofran Odt 4 mg Tablet] 1 - 2 tab PO Q4H PRN #10 tab.rapdis PRN Reason: For Nausea/Vomiting Referrals: ANDREA MATOS MD [HONORARY] - Follow up as needed
[2019-08-28] MEDS ORDERED: NORMAL SALINE 1000 ML 1,000 ML IV ONE ×2 (08:42→10:01)
[2019-08-28] MEDS ORDERED: ONDANSETRON HCL INJ/PF 4 MG/2 ML SDV IV ONE (08:42)
[2019-08-28 09:43] LABS: ABSOLUTE BASOPHILS # (AUTO) 0.1 10^3/uL (0.0-0.2); ABSOLUTE EOSINOPHILS # (AUTO) 0.1 10^3/uL (0.0-0.6); ABSOLUTE LYMPHOCYTES (AUTO) 2.4 10^3/uL (0.5-4.7); ABSOLUTE MONOCYTES (AUTO) 0.9 10^3/uL (0.1-1.4); ABSOLUTE NEUT (AUTO) 6.4 10^3/uL (1.7-8.2); BASOPHILS % (AUTO) 0.9 % (0-2); EOSINOPHILS % (AUTO) 0.6 % (0-6); HEMATOCRIT 41.2 % (36.0-47.0); HEMOGLOBIN 14.2 g/dL (12.0-15.5); LYMPHOCYTES % (AUTO) 23.9 % (13-45); MEAN CORPUSCULAR HGB CONC 34.4 g/dL (32.0-36.0); MEAN CORPUSCULAR VOLUME 87 fl (80-97); MONOCYTES % (AUTO) 9.4 % (3-13); PLATELET COUNT 323 10^3/uL (150-450); RED BLOOD COUNT 4.73 10^6/uL (3.72-5.28); SEGMENTED NEUTROPHILS % (AUTO) 65.2 % (42-78); TOTAL CELLS COUNTED % (AUTO) 100 %; WHITE BLOOD COUNT 9.9 10^3/uL (4.0-10.5)
[2019-08-28 09:48] LABS: APPEARANCE,URINE SLIGHTLY-CLOUDY; BILIRUBIN,URINE NEGATIVE (NEGATIVE); GLUCOSE, URINE NEGATIVE (NEGATIVE); KETONES,URINE TRACE mg/dL (NEGATIVE); LEUKOCYTE ESTERASE,URINE SMALL (NEGATIVE); NITRITE,URINE NEGATIVE (NEGATIVE); PROTEIN,URINE 30 mg/dL (NEGATIVE); URINE SPECIFIC GRAVITY 1.027
[2019-08-28 09:51] LABS: COLOR,URINE DARK YELLOW
[2019-08-28] MEDS ORDERED: KETOROLAC TROMETHAMINE INJ/PF 30 MG/1 ML SDV IV ONE (09:58)
[2019-08-28 10:01] LABS: ALBUMIN 4.9 g/dL (3.5-5.0); ALKALINE PHOSPHATASE 41 U/L (38-126); ANION GAP 11 (5-19); ASPARTATE AMINO TRANSFERASE 16 U/L (14-36); BILIRUBIN,DIRECT 0.1 mg/dL (0.0-0.4); BLOOD UREA NITROGEN 12 mg/dL (7-20); CALCIUM 10.4 mg/dL (8.4-10.2); CARBON DIOXIDE 27 mmol/L (22-30); CHLORIDE 101 mmol/L (98-107); GLUCOSE 76 mg/dL (75-110); POTASSIUM 3.2 mmol/L (3.6-5.0); TOTAL PROTEIN 7.9 g/dL (6.3-8.2)
[2019-08-28 11:22] VITALS: BP 106/66
== END 2019-08-28 11:23 | disposition home or self-care (01) ==
LOC: ER 08:19
DX: R11.2 Nausea with vomiting, unspecified (principal); R10.84 Generalized abdominal pain; Z98.51 Tubal ligation status
CPT/HCPCS: 99283; 96361; 96374; 96375; 36415; 83690; 85025; 81025; 80053; 81001; J1885; J2405; J7030

== ENCOUNTER 2019-12-28 09:46 | Emergency (ER) | payer SELFPAY ==
[2019-12-28] MEDS ORDERED: ACETAMINOPHEN 325 MG TABLET PO ONE (10:46)
[2019-12-28] MEDS ORDERED: IBUPROFEN 600 MG TABLET PO ONE (10:46)
--- NOTE | 2019-12-28 10:49 | ER Document Report ---
HPI - HPI Time Seen by Provider: 12/28/19 10:40 Notes: Otherwise healthy 29-year-old female presenting to emergency department chief complaint of flulike symptoms. Patient reports all her symptoms started last night. She reports intermittent chills and hot flashes, body aches, cough. She denies fever. She denies vomiting or diarrhea. - REPRODUCTIVE Reproductive: DENIES: : Past Medical History - General Information source: Patient - Social History Smoking Status: Never Smoker Frequency of alcohol use: None Drug Abuse: None Family History: Reviewed & Not Pertinent - Past Medical History Cardiac Medical History: Denies: Hx Coronary Artery Disease, Hx Heart Attack, Hx Hypertension Pulmonary Medical History: Denies: Hx Asthma, Hx Bronchitis, Hx COPD, Hx Pneumonia Neurological Medical History: Reports: Hx Migraine. Denies: Hx Cerebrovascular Accident, Hx Seizures Renal/ Medical History: Denies: Hx Peritoneal Dialysis Musculoskeletal Medical History: Denies Hx Arthritis, Reports Hx Musculoskeletal Trauma Psychiatric Medical History: Reports: Hx Depression Traumatic Medical History: Reports: Hx Fractures - Toe Past Surgical History: Reports: Hx Gynecologic Surgery - hymenectomy, Hx Nose Surgery - x2 sinus surgery due to infection and nasal reconstruction, Hx Oral Surgery - wisdom teeth removed, Hx Orthopedic Surgery - bone biospy, Hx Tubal Ligation - Immunizations Hx Diphtheria, Pertussis, Tetanus Vaccination: Yes Vertical Provider Document - CONSTITUTIONAL Notes: PHYSICAL EXAMINATION: GENERAL: Well-appearing, well-nourished and in no acute distress. HEAD: Atraumatic, normocephalic. EYES: Pupils equal round and reactive to light, extraocular movements intact, conjunctiva are normal. ENT: Nares patent, oropharynx clear without exudates. Moist mucous membranes. NECK: Normal range of motion, supple without lymphadenopathy LUNGS: Breath sounds clear to auscultation bilaterally and equal. No wheezes rales or rhonchi. HEART: Regular rate and rhythm without murmurs ABDOMEN: Soft, nontender, nondistended abdomen. No guarding, no rebound. No masses appreciated. Female : deferred Musculoskeletal: Normal range of motion, no pitting or edema. No cyanosis. NEUROLOGICAL: Cranial nerves grossly intact. Normal speech, normal gait. Normal sensory, motor exams PSYCH: Normal mood, normal affect. SKIN: Warm, Dry, normal turgor, no rashes or lesions noted. - INFECTION CONTROL TRAVEL OUTSIDE OF THE [place] IN LAST 30 DAYS: No Course - Re-evaluation Re-evalutation: Laboratory 12/28/19 12/28/19 10:55 10:55 Urine Color YELLOW Urine Appearance SLIGHTLY-CLOUDY Urine pH 5.0 Ur Specific [place] 1.026 Urine Protein 30 H Urine Glucose (UA) NEGATIVE Urine Ketones TRACE H Urine Blood MODERATE H Urine Nitrite NEGATIVE Urine Bilirubin NEGATIVE Urine Urobilinogen NEGATIVE Ur Leukocyte Esterase LARGE H Urine WBC (Auto) 23 Urine RBC (Auto) 8 Urine Bacteria (Auto) TRACE Squamous Epi Cells Auto 13 U Non-Squamous Epis Auto 1 Urine Mucus (Auto) MANY Urine Ascorbic Acid NEGATIVE Influenza A (Rapid) NEGATIVE Influenza B (Rapid) NEGATIVE - Vital Signs Vital signs: Temp Pulse Resp BP Pulse Ox 98.7 F 116 H 18 112/78 100 12/28/19 09:50 12/28/19 09:50 12/28/19 09:50 12/28/19 09:50 12/28/19 09:50 Discharge - Discharge Clinical Impression: Urinary tract infection Qualifiers: Urinary tract infection type: site unspecified Hematuria presence: with hematuria Qualified Code(s): N39.0 - Urinary tract infection, site not specified Condition: Stable Disposition: HOME, SELF-CARE Additional Instructions: Your urine shows findings consistent with a urinary tract infection. Please take all the antibiotics as directed even if your symptoms have improved. Please follow-up with your primary care physician as needed. Take Tylenol or ibuprofen for any fever or pain. Return to emergency room if you develop fever >101F, persistent vomiting, become lethargic, have severe pain in your sides, or any other symptoms that are concerning to you. Prescriptions: Cephalexin [Keflex] 500 mg PO BID #14 capsule Forms: Return to Work Referrals: ANIL PURCELL FNP [NURSE PRACTITIONER] - Follow up as needed
[2019-12-28 11:29] LABS: APPEARANCE,URINE SLIGHTLY-CLOUDY; BILIRUBIN,URINE NEGATIVE (NEGATIVE); COLOR,URINE YELLOW; GLUCOSE, URINE NEGATIVE (NEGATIVE); KETONES,URINE TRACE mg/dL (NEGATIVE); LEUKOCYTE ESTERASE,URINE LARGE (NEGATIVE); NITRITE,URINE NEGATIVE (NEGATIVE); PROTEIN,URINE 30 mg/dL (NEGATIVE); URINE SPECIFIC GRAVITY 1.026; UROBILINOGEN,URINE NEGATIVE mg/dL (<2.0)
[2019-12-28 11:32] LABS: A TYPE INFLUENZA AG NEGATIVE (NEGATIVE); B INFLUENZA AG NEGATIVE (NEGATIVE)
[2019-12-28] MEDS ORDERED: CEFTRIAXONE INJ 1000 MG VIAL IM ONE (11:52)
[2019-12-28] MEDS ORDERED: LIDOCAINE 1% INJ-PF (10 MG/ML) 30 ML SDV IM ONE (11:52)
[2019-12-28 12:11] VITALS: BP 104/68
== END 2019-12-28 12:36 | disposition home or self-care (01) ==
LOC: ER 09:46
DX: N39.0 Urinary tract infection, site not specified (principal); M79.10 Myalgia, unspecified site; R05 Cough; Z98.51 Tubal ligation status
CPT/HCPCS: 99283; 96372; 81001; 87804; J3490; J0696

== ENCOUNTER 2020-07-07 17:07 | Emergency (ER) | payer MEDICAID ==
[2020-07-07 17:14] VITALS: BP 107/70
--- NOTE | 2020-07-07 17:20 | ER Document Report ---
ED General - General Chief Complaint: Foot Injury Stated Complaint: FOOT INJURY Notes: Patient is a 30-year-old female with a history of neurofibromatosis type I and moyamoya who presents to the emergency department with a chief complaint of left foot pain after an injury that occurred prior to arrival. The patient dropped a heavy shelf on the top of the foot. States the dorsal surface of the foot is tender and swollen. She has been unable to put a significant amount of weight or move the foot significantly without any pain. Denies any numbness tingling or weakness. TRAVEL OUTSIDE OF THE [place] IN LAST 30 DAYS: No - Related Data Allergies/Adverse Reactions: No Known Allergies Allergy (Verified 07/07/20 17:15) Past Medical History - Social History Smoking Status: Unknown if Ever Smoked Family History: Reviewed & Not Pertinent - Past Medical History Cardiac Medical History: Denies: Hx Coronary Artery Disease, Hx Heart Attack, Hx Hypertension Pulmonary Medical History: Denies: Hx Asthma, Hx Bronchitis, Hx COPD, Hx Pneumonia Neurological Medical History: Reports: Hx Migraine. Denies: Hx Cerebrovascular Accident, Hx Seizures Renal/ Medical History: Denies: Hx Peritoneal Dialysis Musculoskeletal Medical History: Denies Hx Arthritis, Reports Hx Musculoskeletal Trauma Psychiatric Medical History: Reports: Hx Depression Traumatic Medical History: Reports: Hx Fractures - Toe Past Surgical History: Reports: Hx Gynecologic Surgery - hymenectomy, Hx Nose Surgery - x2 sinus surgery due to infection and nasal reconstruction, Hx Oral Surgery - wisdom teeth removed, Hx Orthopedic Surgery - bone biospy, Hx Tubal Ligation - Immunizations Hx Diphtheria, Pertussis, Tetanus Vaccination: Yes Review of Systems - Review of Systems Constitutional: denies: Fever EENT: denies: Difficulty swallowing Cardiovascular: denies: Chest pain Respiratory: denies: Short of breath Gastrointestinal: denies: Abdominal pain Genitourinary: denies: Pain Female Genitourinary: denies: Musculoskeletal: Joint pain Skin: denies: Change in color Hematologic/Lymphatic: denies: Easy bleeding Neurological/Psychological: denies: Headaches Physical Exam - Vital signs Vitals: Temp Pulse Resp BP Pulse Ox 98.4 F 77 16 107/70 98 07/07/20 17:11 07/07/20 17:11 07/07/20 17:11 07/07/20 17:11 07/07/20 17:11 - General General appearance: Appears well, Alert In distress: None - Respiratory Respiratory status: No respiratory distress Chest status: Nontender Breath sounds: Normal Chest palpation: Normal - Cardiovascular Rhythm: Regular Heart sounds: Normal auscultation - Extremities Notes: Full passive range of motion of the left foot and ankle. 2+ DP/PT on the left. Good cap refill distally in all the toes. No significant deformity appreciated. There is tenderness along the dorsum of the top of the left foot and along the anterior ankle. No tenderness at the Achilles or at the medial or lateral malleolus. Normal Flores squeeze. - Neurological Neuro grossly intact: Yes Cognition: Normal Orientation: AAOx4 Cerebellar coordination: Other - Gait limited by pain - Psychological Associated symptoms: Normal affect, Normal mood - Skin Skin Temperature: Warm Skin Moisture: Dry Skin Color: Normal Course - Re-evaluation Re-evalutation: 07/07/20 17:59 X-rays negative for any acute process per radiologist. Patient placed in an David wrap given crutches with instructions for use. We discussed rice. Will be given a course of ibuprofen 800 for pain and inflammation. Counseled her at length regarding the importance of outpatient follow-up and advised she return here any ER immediately with any new, persistent or worsening symptoms. She ve rbalized understood and agreed. - Vital Signs Vital signs: Temp Pulse Resp BP Pulse Ox 98.4 F 77 16 107/70 98 07/07/20 17:15 07/07/20 17:11 07/07/20 17:11 07/07/20 17:11 07/07/20 17:11 Discharge - Discharge Clinical Impression: Foot contusion Qualifiers: Encounter type: initial encounter Laterality: unspecified laterality Qualified Code(s): S90.30XA - Contusion of unspecified foot, initial encounter Condition: Stable Disposition: HOME, SELF-CARE Instructions: Ice & Elevation ([facility]) Additional Instructions: Follow-up with your regular doctor in 2 to 3 days for reevaluation. Return here or any ER immediately with any new, persistent or worsening symptoms. Prescriptions: Ibuprofen [Ibu] 800 mg PO TID PRN #30 tablet PRN Reason: Referrals: DIOMEDES LACY MD [ACTIVE STAFF] - Follow up as needed
--- NOTE | 2020-07-07 17:48 | RADIOLOGY REPORT (SQ) ---
EXAM DESCRIPTION: ANKLE LEFT COMPLETE IMAGES COMPLETED DATE/TIME: 07/07/2020 5:29 pm REASON FOR STUDY: trauma COMPARISON: None. NUMBER OF VIEWS: Three views. TECHNIQUE: AP, lateral, and oblique radiographic images acquired of the left ankle. LIMITATIONS: None. FINDINGS: MINERALIZATION: Normal. BONES: No acute fracture or dislocation. No worrisome bone lesions. JOINTS: No effusions. SOFT TISSUES: No soft tissue swelling. No foreign body. OTHER: No other significant finding. IMPRESSION: NEGATIVE STUDY OF THE LEFT ANKLE. NO RADIOGRAPHIC EVIDENCE OF ACUTE INJURY. TECHNICAL DOCUMENTATION: JOB ID: [id number] 2010 [employer]- All Rights Reserved Reading location - IP/workstation name: [email or web address]
--- NOTE | 2020-07-07 17:50 | RADIOLOGY REPORT (SQ) ---
EXAM DESCRIPTION: FOOT LEFT COMPLETE IMAGES COMPLETED DATE/TIME: 07/07/2020 5:29 pm REASON FOR STUDY: trauma COMPARISON: None. NUMBER OF VIEWS: Three views. TECHNIQUE: AP, lateral and oblique radiographic images acquired of the left foot. LIMITATIONS: None. FINDINGS: MINERALIZATION: Normal. BONES: No acute fracture or dislocation. No worrisome bone lesions. JOINTS: No effusions. SOFT TISSUES: No soft tissue swelling. No foreign body. OTHER: No other significant finding. IMPRESSION: NEGATIVE STUDY OF THE LEFT FOOT. NO RADIOGRAPHIC EVIDENCE OF ACUTE INJURY. TECHNICAL DOCUMENTATION: JOB ID: [id number] 2010 [employer]- All Rights Reserved Reading location - IP/workstation name: [email or web address]
== END 2020-07-07 18:07 | disposition home or self-care (01) ==
LOC: ER 17:07
DX: S90.30XA Contusion of unspecified foot, initial encounter (principal); Q85.01 Neurofibromatosis, type 1; I67.5 Moyamoya disease; M79.672 Pain in left foot; M79.89 Other specified soft tissue disorders; W22.8XXA Striking against or struck by other objects, initial encounter
CPT/HCPCS: 99283

== ENCOUNTER 2020-08-31 10:13 | Emergency (ER) | payer MEDICAID ==
[2020-08-31 10:19] VITALS: BP 128/87
[2020-08-31] MEDS ORDERED: CEPHALEXIN 500 MG CAPSULE PO ONE (10:42)
[2020-08-31] MEDS ORDERED: PREDNISONE 20 MG TABLET PO ONE (10:42)
--- NOTE | 2020-08-31 10:44 | ER Document Report ---
HPI - HPI Patient complains to provider of: Right side facial swelling Time Seen by Provider: 08/31/20 10:37 Onset: Yesterday Onset/Duration: Worse Pain Level: 3 Context: Patient complains of right forehead itching and facial swelling. Patient states swelling has extended to the right periorbital area. Patient reports getting stung by an insect yesterday and has pruritus to forehead. Patient denies any vision changes. No eye drainage. Associated Symptoms: Other - Right facial swelling, itching Exacerbated by: Denies Relieved by: Denies Similar symptoms previously: No Recently seen / treated by doctor: No - ROS ROS below otherwise negative: Yes Systems Reviewed and Negative: Yes All other systems reviewed and negative - EENT EENT: REPORTS: Eye problems - GASTROINTESTINAL Gastrointestinal: DENIES: Nausea - REPRODUCTIVE Reproductive: DENIES: : - DERM Skin Color: Erythema Notes: Insect bite to right forehead Past Medical History - General Information source: Patient - Social History Smoking Status: Current Every Day Smoker Chew tobacco use (# tins/day): No Frequency of alcohol use: Occasional Drug Abuse: None Occupation: Customer service Family History: Reviewed & Not Pertinent Patient has homicidal ideation: No - Medical History Medical History: Other - Allison Allison, NF1 - Past Medical History Cardiac Medical History: Denies: Hx Coronary Artery Disease, Hx Heart Attack, Hx Hypertension Pulmonary Medical History: Denies: Hx Asthma, Hx Bronchitis, Hx COPD, Hx Pneumonia Neurological Medical History: Reports: Hx Migraine. Denies: Hx Cerebrovascular Accident, Hx Seizures Renal/ Medical History: Denies: Hx Peritoneal Dialysis Musculoskeletal Medical History: Denies Hx Arthritis, Reports Hx Musculoskeletal Trauma Psychiatric Medical History: Reports: Hx Depression Traumatic Medical History: Reports: Hx Fractures - Toe Past Surgical History: Reports: Hx Gynecologic Surgery - hymenectomy, Hx Nose Surgery - x2 sinus surgery due to infection and nasal reconstruction, Hx Oral Surgery - wisdom teeth removed, Hx Orthopedic Surgery - bone biospy, Hx Tubal Ligation - Immunizations Hx Diphtheria, Pertussis, Tetanus Vaccination: Yes Vertical Provider Document - CONSTITUTIONAL Agree With Documented VS: Yes Exam Limitations: No Limitations General Appearance: WD/WN, No Apparent Distress - INFECTION CONTROL TRAVEL OUTSIDE OF THE [place] IN LAST 30 DAYS: No - HEENT HEENT: Atraumatic, PERRLA Notes: Erythematous maculopapular lesion to right side of forehead with surrounding erythema that extends to the right periorbital area, no periorbital tenderness, no pain with eye movement, PERRL - NECK Neck: Normal Inspection, Supple - RESPIRATORY Respiratory: Breath Sounds Normal, No Respiratory Distress - CARDIOVASCULAR Cardiovascular: Regular Rate, Regular Rhythm - MUSCULOSKELETAL/EXTREMETIES Musculoskeletal/Extremeties: MAEW - NEURO Level of Consciousness: Awake, Alert, Appropriate Motor/Sensory: No Motor Deficit - DERM Integumentary: Warm, Dry, Rash - Erythema surrounding central maculopapular lesion consistent with reported history of insect bite, no fluctuance, no concern for drainable abscess Course - Re-evaluation Re-evalutation: 08/31/20 Patient presents with skin rash to right side of forehead consistent with reported history of insect bite. No concern for any drainable abscess at this time, no concern for orbital or preseptal cellulitis. Patient does complain of pruritus, no concern for anaphylaxis. Patient encouraged to return immediately for any new or worsening symptoms. - Vital Signs Vital signs: Temp Pulse Resp BP Pulse Ox 98.0 F 86 16 128/87 H 100 08/31/20 10:36 08/31/20 10:17 08/31/20 10:17 08/31/20 10:17 08/31/20 10:17 Discharge - Discharge Clinical Impression: Facial swelling Insect bite Qualifiers: Encounter type: initial encounter Site of insect bite: unspecified site Qualified Code(s): W57.XXXA - Bitten or stung by nonvenomous insect and other nonvenomous arthropods, initial encounter Condition: Stable Disposition: HOME, SELF-CARE Instructions: Cephalexin ([facility]), Use of Diphenhydramine, Steroid Medication, Swollen Insect Bite or Sting ([facility]) Additional Instructions: Return immediately for any new or worsening symptoms: Fever, increased swelling, increased redness change in vision or any concerning symptoms Followup with your primary care provider, call tomorrow to make a followup appointment Prescriptions: Prednisone [Deltasone 10 mg Tablet] 10 mg PO ASDIR #21 tablet Cephalexin Monohydrate [Keflex 500 mg Capsule] 500 mg PO Q6H 5 Days #20 capsule Forms: Return to Work Referrals: [facility] [Provider Group] - Follow up as needed
== END 2020-08-31 10:49 | disposition home or self-care (01) ==
LOC: ER 10:13
DX: S00.86XA Insect bite (nonvenomous) of other part of head, initial encounter (principal); W57.XXXA Bitten or stung by nonvenomous insect and other nonvenomous arthropods, initial encounter; F17.200 Nicotine dependence, unspecified, uncomplicated
CPT/HCPCS: 99283; J7512

== ENCOUNTER 2020-10-13 08:16 | Emergency (ER) | payer MEDICAID ==
--- NOTE | 2020-10-13 10:25 | ER Document Report ---
ED Medical Screen (RME) - General Chief Complaint: Jaw Pain Stated Complaint: MOUTH PAIN/NAUSEA Time Seen by Provider: 10/13/20 10:20 Primary Care Provider: JOANNA GOODWIN [Primary Care Provider] - Follow up as needed Notes: 30-year-old female presented to ED after dental procedure yesterday. She states the tooth has been bleeding most of the night. She states she woke up this morning with a lot of blood and clots in the jaw and had aspirated some of them. She states she did call the dentist yesterday and they did give her [place] for the pain. There is no active bleeding right now. I have showed her how to put the thing in and to leave it there for a couple hours at a time. I have also instructed her to recall the dentist again today. I will order blood just to ensure that she has not lost enough blood to be making her dizzy. Order some Zofran right now for the nausea. Patient is alert oriented respirations regular nonlabored speaking in full sentences. States she quit smoking before the procedure has not smoked since this procedure was done. I have greeted and performed a rapid initial assessment of this patient. A comprehensive ED assessment and evaluation of the patient, analysis of test results and completion of medical decision making process will be conducted by an additional ED providers. TRAVEL OUTSIDE OF THE [place] IN LAST 30 DAYS: No - Related Data Allergies/Adverse Reactions: No Known Allergies Allergy (Verified 08/31/20 10:36) Past Medical History - Past Medical History Cardiac Medical History: Denies: Hx Coronary Artery Disease, Hx Heart Attack, Hx Hypertension Pulmonary Medical History: Denies: Hx Asthma, Hx Bronchitis, Hx COPD, Hx Pneumonia Neurological Medical History: Reports: Hx Migraine. Denies: Hx Cerebrovascular Accident, Hx Seizures Renal/ Medical History: Denies: Hx Peritoneal Dialysis Musculoskeltal Medical History: Denies Hx Arthritis, Reports Hx Musculoskeletal Trauma Psychiatric Medical History: Reports: Hx Depression Traumatic Medical History: Reports: Hx Fractures - Toe Past Surgical History: Reports: Hx Gynecologic Surgery - hymenectomy, Hx Nose Surgery - x2 sinus surgery due to infection and nasal reconstruction, Hx Oral Surgery - wisdom teeth removed, Hx Orthopedic Surgery - bone biospy, Hx Tubal Ligation - Immunizations Hx Diphtheria, Pertussis, Tetanus Vaccination: Yes Physical Exam - Vital signs Vitals: Temp Pulse Resp BP Pulse Ox 98.8 F 64 20 122/62 100 10/13/20 08:24 10/13/20 08:24 10/13/20 08:24 10/13/20 08:24 10/13/20 08:24 Course - Vital Signs Vital signs: Temp Pulse Resp BP Pulse Ox 98.8 F 64 20 122/62 100 10/13/20 08:24 10/13/20 08:24 10/13/20 08:24 10/13/20 08:24 10/13/20 08:24 Doctor's Discharge - Discharge Referrals: LOCALMD,NO [Primary Care Provider] - Follow up as needed
[2020-10-13 10:48] LABS: ABSOLUTE BASOPHILS # (AUTO) 0.1 10^3/uL (0.0-0.2); ABSOLUTE EOSINOPHILS # (AUTO) 0.1 10^3/uL (0.0-0.6); ABSOLUTE LYMPHOCYTES (AUTO) 1.5 10^3/uL (0.5-4.7); ABSOLUTE MONOCYTES (AUTO) 1.1 10^3/uL (0.1-1.4); BASOPHILS % (AUTO) 0.6 % (0-2); EOSINOPHILS % (AUTO) 0.5 % (0-6); HEMATOCRIT 36.2 % (36.0-47.0); HEMOGLOBIN 12.7 g/dL (12.0-15.5); LYMPHOCYTES % (AUTO) 14.2 % (13-45); MEAN CORPUSCULAR HEMOGLOBIN 30.3 pg (27.0-33.4); MEAN CORPUSCULAR VOLUME 87 fl (80-97); MONOCYTES % (AUTO) 9.8 % (3-13); PLATELET COUNT 267 10^3/uL (150-450); RED BLOOD COUNT 4.18 10^6/uL (3.72-5.28); RED CELL DISTRIBUTION WIDTH 12.8 % (11.5-14.0); SEGMENTED NEUTROPHILS % (AUTO) 74.9 % (42-78); TOTAL CELLS COUNTED % (AUTO) 100 %; WHITE BLOOD COUNT 10.7 10^3/uL (4.0-10.5)
[2020-10-13 10:50] LABS: APPEARANCE,URINE CLEAR; BILIRUBIN,URINE NEGATIVE (NEGATIVE); COLOR,URINE YELLOW; GLUCOSE, URINE NEGATIVE (NEGATIVE); KETONES,URINE 20 mg/dL (NEGATIVE); LEUKOCYTE ESTERASE,URINE SMALL (NEGATIVE); NITRITE,URINE NEGATIVE (NEGATIVE); PROTEIN,URINE NEGATIVE (NEGATIVE); URINE SPECIFIC GRAVITY 1.011; UROBILINOGEN,URINE NEGATIVE mg/dL (<2.0)
[2020-10-13 11:06] LABS: ALBUMIN 4.1 g/dL (3.5-5.0); ALKALINE PHOSPHATASE 46 U/L (38-126); ANION GAP 11 (5-19); ASPARTATE AMINO TRANSFERASE 16 U/L (14-36); BILIRUBIN,TOTAL 0.8 mg/dL (0.2-1.3); BLOOD UREA NITROGEN 7 mg/dL (7-20); CALCIUM 9.7 mg/dL (8.4-10.2); CARBON DIOXIDE 22 mmol/L (22-30); CHLORIDE 104 mmol/L (98-107); GLUCOSE 86 mg/dL (75-110); POTASSIUM 3.6 mmol/L (3.6-5.0); TOTAL PROTEIN 6.9 g/dL (6.3-8.2)
--- NOTE | 2020-10-13 14:55 | ER Document Report ---
ED Oral Problem - General Chief Complaint: Jaw Pain Stated Complaint: MOUTH PAIN/NAUSEA Time Seen by Provider: 10/13/20 10:20 Primary Care Provider: JOANNA GOODWIN [NO LOCAL MD] - Follow up as needed Mode of Arrival: Ambulatory Information source: Patient Notes: Patient is a 40-year-old female comes emergency room complaining of oral bleeding. Patient had a dental procedure done yesterday with tooth extraction of the back left 2 molars and a bone graft done. Patient is states that after the surgery she is continuously bled and cannot stop. She contacted the dentist who told her to come to the emergency room for evaluation. Patient denies any known injuries is just the bleeding will not stop she woke up this morning with blood all over her face and her pillow. TRAVEL OUTSIDE OF THE [place] IN LAST 30 DAYS: No - HPI Patient complains to provider of: Swelling of jaw, Other - Gum bleeding Onset: Yesterday Onset: Gradual Quality of pain: Achy Severity: Moderate Pain Level: 3 Context: Recent dental extractions Relieved by: Nothing Similar symptoms previously: Yes Recently seen / treated by doctor/dentist: Yes - Related Data Allergies/Adverse Reactions: No Known Allergies Allergy (Verified 08/31/20 10:36) Past Medical History - General Information source: Patient - Social History Smoking Status: Former Smoker Cigarette use (# per day): No Chew tobacco use (# tins/day): No Smoking Education Provided: No Frequency of alcohol use: None Drug Abuse: None Lives with: Family Family History: Reviewed & Not Pertinent - Past Medical History Cardiac Medical History: Denies: Hx Coronary Artery Disease, Hx Heart Attack, Hx Hypertension Pulmonary Medical History: Denies: Hx Asthma, Hx Bronchitis, Hx COPD, Hx Pneumonia Neurological Medical History: Reports: Hx Migraine. Denies: Hx Cerebrovascular Accident, Hx Seizures Renal/ Medical History: Denies: Hx Peritoneal Dialysis Musculoskeletal Medical History: Denies Hx Arthritis, Reports Hx Musculoskeletal Trauma Psychiatric Medical History: Reports: Hx Depression Traumatic Medical History: Reports: Hx Fractures - Toe Past Surgical History: Reports: Hx Gynecologic Surgery - hymenectomy, Hx Nose Surgery - x2 sinus surgery due to infection and nasal reconstruction, Hx Oral Surgery - wisdom teeth removed, Hx Orthopedic Surgery - bone biospy, Hx Tubal Ligation - Immunizations Hx Diphtheria, Pertussis, Tetanus Vaccination: Yes Review of Systems - Review of Systems Constitutional: No symptoms reported EENT: No symptoms reported, Dental problem Cardiovascular: No symptoms reported Respiratory: No symptoms reported Gastrointestinal: No symptoms reported Genitourinary: No symptoms reported Female Genitourinary: No symptoms reported Musculoskeletal: No symptoms reported Skin: No symptoms reported Hematologic/Lymphatic: No symptoms reported Neurological/Psychological: No symptoms reported -: Yes All other systems reviewed and negative Physical Exam - Vital signs Vitals: Temp Pulse Resp BP Pulse Ox 98.8 F 64 20 122/62 100 10/13/20 08:24 10/13/20 08:24 10/13/20 08:24 10/13/20 08:24 10/13/20 08:24 Interpretation: Normal - Notes Notes: PHYSICAL EXAMINATION: GENERAL: Patient is a well-nourished well-developed 30-year-old female no apparent distress on examination but does appear uncomfortable. HEAD: External examination patient's head shows of the left jaw to be moderately swollen. There is no fluctuance felt. EYES: Pupils equal round and reactive to light, extraocular movements intact, conjunctiva are normal. ENT: Examination patient's head and upper airway showed nasal mucosa to be normal in appearance. No frontal or maxillary sinus tenderness to palpation. Examination patient's oral cavity where her primary area of concern is his the left back or lower 2 molars and the third anterior molar. Extractions were done the back to. Patient appears to be bleeding around the gum of the third molar area. And some bleeding into the proximal portion of the second molar area from the extraction. It is decreasing substantially but still present. No sign of infection is seen in the oral cavity. NECK: Normal range of motion, supple without lymphadenopathy LUNGS: Breath sounds clear to auscultation bilaterally and equal. No wheezes rales or rhonchi. HEART: Regular rate and rhythm without murmurs NEUROLOGICAL: Normal speech, normal gait. Normal sensory, motor exams PSYCH: Normal mood, normal affect. SKIN: Warm, Dry, normal turgor, no rashes or lesions noted. Course - Re-evaluation Re-evalutation: 10/13/20 14:54 After examination I decided to use some quick clot/Surgicel and surrounded the third left lower back molar and packed the area of the 2 extractions. We then applied 2 x 2's on top tab for some compression. I did give patient the remnants of the quick clot to take home with her. I explained to her that this takes some time for it to work and the longer she leaves it there the better will be. - Vital Signs Vital signs: Temp Pulse Resp BP Pulse Ox 98.8 F 86 16 124/60 100 10/13/20 12:30 10/13/20 12:30 10/13/20 12:30 10/13/20 12:30 10/13/20 12:30 - Laboratory Result Diagrams: 10/13/20 10:25 10/13/20 10:25 Laboratory results interpreted by me: 10/13/20 10/13/20 10/13/20 10:00 10:25 10:25 WBC 10.7 H Sodium 136.7 L Urine Ketones 20 H Urine Blood SMALL H Ur Leukocyte Esterase SMALL H Discharge - Discharge Clinical Impression: Surgical wound hemorrhage after dental procedure Disposition: HOME, SELF-CARE Instructions: Dental Injury ([facility]) Additional Instructions: As we have indicated to you this cough that I have given you helps form clots. The longer it is in contact with the area the better it works. If it is soaking wet with blood or saliva you may remove it and replace it with the spare one that I gave you. You can cut it up as you need to keep it in that area. You can also use ice packs to the local jaw area this will also help slow the bleeding down. Highly suggest that you contact your surgeon and follow-up with them as soon as possible. Take all the medications he has prescribed. Return to ER if you have any concerns or problems. Prescriptions: Ondansetron [Zofran Odt 4 mg Tablet] 1 - 2 tab PO Q4H PRN #15 tab.rapdis PRN Reason: For Nausea/Vomiting Forms: Return to Work Referrals: LOCALMD,NO [NO LOCAL MD] - Follow up as needed
[2020-10-13 15:18] VITALS: BP 122/62
--- OUTSIDE RECORDS SUMMARY | 2020-10-14 15:17 | XMS REPORT ---
:1990 Author Organization [facility] Address [facility] [address] [place] [id number] Care Team Providers Name Role Phone Reindl Attending Clinician Unavailable Allergies, Adverse Reactions, Alerts This patient has no known allergies or adverse reactions. Medications This patient has no known medications. 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 01-04 00:00: 00 Lymphadenop Lymphadenop Problem Active 2017-12 athy athy 01-04 00:00: 00 Procedures Procedure Date / Time Performed Performing Clinician Beto jaime OFFICE/OUTPATIENT VISIT [facility] 2018-10-16 08:30:00 Tubal Ligation 2015-09-01 00:00:00 Reconstruction of Nose 2009-04-01 00:00:00 SINUS SURGERY PROCEDURE 2003-12-02 00:00:00 Hymenectomy 2002-05-02 00:00:00 Biopsy of Bone 2001-08-02 00:00:00 Results Test Description Test Time Test Comments Text Results Atomic Results Result Comments [facility] [place]\S\L 2019-09-11 14:45:00 Test Item Value Reference Range Comments RBCS ([facility] [place]) (test code = RBCS) RARE RBCS SEEN EPITHELIALS ([facility] [place]) (test code = EPIS) 4+ EPITHELIALS SEEN BACTERIA ([facility] [place]) (test code = BACT) 4+ BACTERIA SEEN T.VAGINALIS ([facility] [place]) (test code = TRICH) NO TRICHOMONAS SEEN WBCS ([facility] [place]) (test code = WBCS) 4+ WBCS SEEN YEAST ([facility] [place]) (test code = YSTS) NO YEAST SEEN URINE CULTURE\S\[id number] 13:54:00 Test Item Value Reference Range Comments MIXED UROGENITAL ARIANA (test code = MSF) [facility] JOSE CARLOS PCR URINE INHOUSE\S\[id number] 13:54:00 Test Item Value Reference Range Comments JOSE CARLOS PCR (test code = GONPCR) NOT DETECTED NOT DETECT CHLAM PCR (test code = CHLAMPCR) NOT DETECTED NOT DETECT Urine \S\2019-09-11 13:45:00 Test Item Value Reference Range Comments Urine (test code = URINEPREG) negative N/A Assessments Condition Name Status Diagnosis Date Treating Clinici an Cervical lymphadenopathy Active 2018-11-09 14:08:48 Generalized enlarged lymph nodes Active Neurofibromatosis, unspecified Active Tobacco use Active Body mass index (BMI) 19 or less, adult Active Encounters Start End Encounter Admission Attending Care Care Encounter Date/Time Date/Time Type Type Clinicians Facility Department ID 2018-11-03 2018-11-03 Kai Wilkinsoneret [id number] 00:00:00 00:00:00 [facility]: [facility] [address] [id number] [place] [address], Ph. 2018-10-16 2018-10-16 Outpatient Rein, [facility] 31 [id number] 08:30:00 08:30:00 [facility] [id number] [facility] [place] Social History Smoking Status Start Date Stop Date Heavy Tobacco Smoker Vital Signs Vital Name Observation Time Observation Value Comments BP Systolic 2018-11-03 00:00:00 92 mm[Hg] Body Weight 2018-11-03 00:00:00 95 [lb_av] BP Diastolic 2018-11-03 00:00:00 57 mm[Hg] Height 2018-11-03 00:00:00 59 [in_i] BMI (Body Mass Index) 2018-11-03 00:00:00 19.2 kg/m2 Hospital Discharge Instructions 1. Cervical lymphadenopathy Discussion Note: None recorded. Patient educational handouts: No information available.
== END 2020-10-13 15:18 | disposition home or self-care (01) ==
LOC: ER 08:16
DX: K91.840 Postprocedural hemorrhage of a digestive system organ or structure following a digestive system procedure (principal); R68.84 Jaw pain
CPT/HCPCS: 36415; 80053; 81001; 84703; 85025; 99283